=== PATIENT | male | born 1950 | race Caucasian/White ===

== ENCOUNTER 2017-06-16 13:11 | Emergency (ER) | payer MEDICARE, MEDICAID ==
--- NOTE | 2017-06-16 14:28 | RAD ---
PA AND LATERAL VIEWS CHEST: Date: 06/16/17 HISTORY: Cough, aspiration. FINDINGS: Comparison made with exam of 01/21/17. The heart size is enlarged. There is evidence of old granulomatous disease. No focal areas of consol idation, pneumothorax, or pleural effusions are seen. There are degenerative changes in the spine. IMPRESSION: No acute process. POS: [facility]
[2017-06-16 14:46] LABS: #Eosinphils 0.1 thou/uL (0.0-0.7); #Lymphocytes 1.5 thou/uL (1.20-3.40); #Monocytes 0.7 thou/uL (0.11-0.59); #Neutrophils 5.8 thou/uL (1.40-6.50); %Basophils 0.1 % (0.0-1.0); %Eosinophils 1.3 % (0.0-10.0); %Lymphocytes 18.2 % (21.0-51.0); Hematocrit 43.6 % (42.0-52.0); Mean Platelet Volume 6.3 fL (7.4-10.4); Red Blood Cell (RBC) Count 4.89 mill/uL (4.70-6.10); White Blood Cell (WBC) Count 8.1 thou/uL (4.8-10.8)
[2017-06-16 14:51] LABS: Anion Gap 12 mmol/L (10-20); BUN (Urea Nitrogen) 10 mg/dL (8.4-25.7); Calc. Creatinine Clearance 0 mL/min (70-130); Carbon Dioxide 29 mmol/L (23-31); Chloride 101 mmol/L (98-107); Estimated GFR-MDRD Greater than 90
== END 2017-06-16 15:12 | disposition home or self-care (01) ==
LOC: ERS 13:11
DX: J06.9 Acute upper respiratory infection, unspecified (principal); F84.0 Autistic disorder; E11.9 Type 2 diabetes mellitus without complications; I10 Essential (primary) hypertension; Z85.038 Personal history of other malignant neoplasm of large intestine
CPT/HCPCS: 36415; 71020; 80048; 85025

== ENCOUNTER 2017-12-12 09:15 | Outpatient (CLI) | payer MEDICARE, MEDICAID ==
[2017-12-12 11:41] LABS: Chloride 102 mmol/L (98-107); Potassium 4.3 mmol/L (3.5-5.1); Sodium 142 mmol/L (136-145)
[2017-12-12 11:42] LABS: Calcium 10.2 mg/dL (7.8-10.44); Glucose 102 mg/dL (80-115)
[2017-12-12 11:44] LABS: Carbon Dioxide 30 mmol/L (23-31)
[2017-12-12 11:46] LABS: BUN (Urea Nitrogen) 16 mg/dL (8.4-25.7); Calc. Creatinine Clearance 0 mL/min (70-130); Estimated GFR-MDRD Greater than 90
--- NOTE | 2017-12-12 11:50 | CT ---
CT OF THE THORAX WITHOUT IV CONTRAST: INDICATION: Followup pulmonary nodules. COMPARISON: Prior exams dated 12/16/16 and 12/25/15. FINDINGS: The pulmonary nodules have been stable since December 2015 and are benign. There is a new airspace opac ity within the right lower lobe with some portions of it being hyperdense radiating suspicion for pos sible aspiration pneumonitis with some barium-impregnated contrast. Chronic lung changes otherwise a re stable. No enlarged lymph nodes are evident. There is scattered degenerative change. IMPRESSION: 1. Pulmonary nodules have been stable since December of 2015 and are benign. 2. New airspace opacity with some radiodensity suspicious for aspirated barium within the posteromed ial right lower lobe. Findings are suspicious for aspiration pneumonitis. Modified barium swallow w [facility] speech therapy consultation is recommended. POS: [facility]
[2017-12-12 12:04] LABS: Anion Gap 14 mmol/L (10-20)
[2017-12-12 13:09] LABS: Bilirubin Negative (Negative); Blood, Urine Trace (Negative); Clarity CLOUDY (Clear); Glucose, Urine (Dipstick) Negative (Negative); Leukocyte Negative (Negative); Nitrite Negative (Negative); Protein, Urine (Dipstick) Negative (Neg-Trace); Specific Gravity, Urine 1.016 (1.002-1.036); Urobilinogen 0.2 mg/dL (0.2-1.0); pH, Urine 7.5 (5.0-9.0)
[2017-12-12 13:10] LABS: Bacteria/HPF None Seen HPF (None Seen); Hyaline Casts/LPF 0-3 HYALINE CAST LPF (0-3 Hyaline); Squamous Epithelial 0-3 HPF (0-3); WBC/HPF 0-3 HPF (0-3)
== END 2017-12-12 09:16 | disposition home or self-care (01) ==
LOC: CT 09:15
PROVIDERS: ATTEND Internal Medicine
DX: Z12.5 Encounter for screening for malignant neoplasm of prostate (principal); R91.8 Other nonspecific abnormal finding of lung field; N20.0 Calculus of kidney; R35.0 Frequency of micturition
CPT/HCPCS: 71250; 80048; 81001; 87086; G0103

== ENCOUNTER 2017-12-22 20:15 | Emergency (ER) | payer MEDICARE, MEDICAID ==
--- NOTE | 2017-12-22 21:26 | RAD ---
AP VIEW OF THE CHEST: 12/22/17 INDICATION: Cough. IMPRESSION: No acute cardiopulmonary abnormality. The examination is not appreciably changed from comparison date d 01/21/17. POS: [facility]
[2017-12-22] MEDS ORDERED: Acetaminophen 500 MG TAB ONE (21:32)
== END 2017-12-22 22:18 | disposition home or self-care (01) ==
LOC: ERS 20:15
DX: J18.9 Pneumonia, unspecified organism (principal); I10 Essential (primary) hypertension; E11.9 Type 2 diabetes mellitus without complications; F84.0 Autistic disorder; Z79.82 Long term (current) use of aspirin; Z87.442 Personal history of urinary calculi; Z79.899 Other long term (current) drug therapy
CPT/HCPCS: 71045; 94640; J7620

== ENCOUNTER 2018-03-26 08:42 | Emergency (ER) | payer MEDICARE, MEDICAID ==
--- NOTE | 2018-03-26 09:38 | RAD ---
ACUTE ABDOMINAL SERIES: INDICATION: Cough. Concern that patient may have eaten a sock. History of PICA. FINDINGS: Visualized aspects of the lungs are within normal limits. No pneumoperitoneum is evident. There is a moderate amount of retained stool within the rectum and right hemicolon. There is a 9 mm stone inv olving the right kidney. No radiopaque foreign body is evident. No acute osseous abnormality is rasheed dent. IMPRESSION: 1. No acute abnormality. 2. Right nephrolithiasis. 3. A moderate amount of retained stool within the right hemicolon and rectum. POS: [facility]
== END 2018-03-26 09:57 | disposition home or self-care (01) ==
LOC: ERS 08:42
DX: K59.00 Constipation, unspecified (principal); E11.9 Type 2 diabetes mellitus without complications; I10 Essential (primary) hypertension; F84.0 Autistic disorder
CPT/HCPCS: 74022

== ENCOUNTER 2018-04-03 09:47 | Outpatient (CLI) | payer MEDICARE, MEDICAID ==
[2018-04-03 10:54] LABS: Bilirubin Negative (Negative); Blood, Urine Small (Negative); Clarity CLEAR (Clear); Glucose, Urine (Dipstick) Negative (Negative); Leukocyte Negative (Negative); Nitrite Negative (Negative); Protein, Urine (Dipstick) Negative (Neg-Trace); Specific Gravity, Urine 1.012 (1.002-1.036); Urobilinogen 0.2 mg/dL (0.2-1.0); pH, Urine 6.5 (5.0-9.0)
[2018-04-03 10:56] LABS: Bacteria/HPF None Seen HPF (None Seen); Hyaline Casts/LPF 0-3 HYALINE CAST LPF (0-3 Hyaline); Squamous Epithelial None Seen HPF (0-3); WBC/HPF None Seen HPF (0-3)
[2018-04-03 11:10] LABS: Anion Gap 13 mmol/L (10-20); BUN (Urea Nitrogen) 14 mg/dL (8.4-25.7); Calc. Creatinine Clearance 0 mL/min (70-130); Calcium 10.1 mg/dL (7.8-10.44); Carbon Dioxide 26 mmol/L (23-31); Chloride 103 mmol/L (98-107); Estimated GFR-MDRD Greater than 90; Glucose 143 mg/dL (80-115); Potassium 4.4 mmol/L (3.5-5.1); Sodium 138 mmol/L (136-145)
--- NOTE | 2018-04-03 11:56 | RAD ---
ABDOMEN ONE VIEW: History: Calculus of kidney. Comparison: 03-26-18 FINDINGS: There is an unchanged calcification projecting over the right renal shadow. No left renal shadow calc ifications are appreciated. No ureteral calcifications are appreciated. IMPRESSION: Unchanged appearance of the 9 mm calculus projecting over the right renal shadow. POS: [facility]
== END 2018-04-03 09:48 | disposition home or self-care (01) ==
LOC: RAD 09:47
PROVIDERS: ATTEND Urology
DX: Z12.5 Encounter for screening for malignant neoplasm of prostate (principal); N20.0 Calculus of kidney; R35.0 Frequency of micturition
CPT/HCPCS: 74018; 80048; 81001; 87086; G0103; 36415

== ENCOUNTER 2018-04-05 09:54 | Emergency (ER) | payer MEDICARE, MEDICAID | END 2018-04-05 10:56 | disposition home or self-care (01) | LOC: ERS 09:54 | DX: S40.021A Contusion of right upper arm, initial encounter (principal); S70.11XA Contusion of right thigh, initial encounter; F84.0 Autistic disorder; E11.9 Type 2 diabetes mellitus without complications; I10 Essential (primary) hypertension; W19.XXXA Unspecified fall, initial encounter | CPT/HCPCS: 99283 ==

== ENCOUNTER 2018-06-11 11:00 | Inpatient (IN) | payer MEDICARE, MEDICAID ==
[2018-06-11] MEDS ORDERED: Ondansetron ODT 4 MG TAB ONE (11:23)
--- NOTE | 2018-06-11 12:57 | RAD ---
ABDOMEN 2 VIEWS: HISTORY: Abdominal pain. COMPARISON: None. FINDINGS: No dilated air-filled loops of large or small bowel. Moderate stool within the rectal vault. No free air. Projecting over the right renal shadow is a large calculus. IMPRESSION: 1. Findings concerning for a right renal calculi. 2. Moderate stool burden. 3. No evidence for small bowel obstruction. POS: [facility]
[2018-06-11 13:19] LABS: Bilirubin Negative (Negative); Blood, Urine Small (Negative); Clarity CLEAR (Clear); Glucose, Urine (Dipstick) 250 mg/dL (Negative); Leukocyte Negative (Negative); Nitrite Negative (Negative); Protein, Urine (Dipstick) 100 mg/dL (Neg-Trace); Specific Gravity, Urine 1.016 (1.002-1.036); Urobilinogen 0.2 mg/dL (0.2-1.0); pH, Urine 7.5 (5.0-9.0)
[2018-06-11 13:22] LABS: Bacteria/HPF None Seen HPF (None Seen); Hyaline Casts/LPF 0-3 HYALINE CAST LPF (0-3 Hyaline); RBC/HPF 21-50 HPF (0-3); Squamous Epithelial 0-3 HPF (0-3); WBC/HPF None Seen HPF (0-3)
[2018-06-11] MEDS ORDERED: ISOVUE-370 76%-LOCM 1 ML ONE (13:39)
[2018-06-11 14:19] LABS: ALT (SGPT) 21 U/L (8-55); AST (SGOT) 24 U/L (5-34); Albumin 4.4 g/dL (3.4-4.8); Alkaline Phosphatase 99 U/L (40-150); Anion Gap 15 mmol/L (10-20); BUN (Urea Nitrogen) 12 mg/dL (8.4-25.7); Bilirubin, Total 0.5 mg/dL (0.2-1.2); Calc. Creatinine Clearance 0 mL/min (70-130); Calcium 10.2 mg/dL (7.8-10.44); Carbon Dioxide 25 mmol/L (23-31); Chloride 96 mmol/L (98-107); Estimated GFR-MDRD Greater than 90; Globulin 4.1 g/dL (2.4-3.5); Glucose 214 mg/dL (80-115); Lipase 17 U/L (8-78); Potassium 4.2 mmol/L (3.5-5.1); Protein, Total 8.5 g/dL (5.8-8.1); Sodium 132 mmol/L (136-145)
[2018-06-11] MEDS ORDERED: Ketorolac Tromethamine 30 MG/ML VIAL ONE (14:42)
[2018-06-11] MEDS ORDERED: Morphine 2 MG/ML SYRINGE ONE (14:42)
[2018-06-11 14:59] LABS: #Lymphocytes 0.5 thou/uL (1.20-3.40); #Monocytes 0.2 thou/uL (0.11-0.59); #Neutrophils 8.3 thou/uL (1.40-6.50); %Basophils 0.1 % (0.0-1.0); %Eosinophils 0.4 % (0.0-10.0); %Lymphocytes 5.3 % (21.0-51.0); %Monocytes 2.5 % (0.0-10.0); %Neutrophils 91.8 % (42.0-75.0); Hemoglobin 15.4 g/dL (14.0-18.0); Mean Corpuscular HGB CONC 43.4 g/dL (32.0-36.0); Mean Corpuscular Hemoglobin 37.3 pg (27.0-31.0); Mean Corpuscular Volume 85.9 fL (78.0-98.0); Mean Platelet Volume 6.5 fL (7.4-10.4); PLT Morphology Comment Appears Adequate; Platelet Count 254 thou/uL (130-400); RBC Distribution Width 12.9 % (11.5-14.5); RBC Morphology Normal; Red Blood Cell (RBC) Count 4.12 mill/uL (4.70-6.10)
--- NOTE | 2018-06-11 15:18 | CT ---
CT ABDOMEN AND PELVIS WITH IV AND ORAL CONTRAST: HISTORY: Abdominal pain. Vomiting. COMPARISON: . FINDINGS: Tiny bilateral lung base nodules and right posterior pleural calcification are again demonstrated. F luid is present within the stomach without significant dilatation. An oval 0.9 cm nonobstructing rig ht renal calculus is stable. Degenerative changes lumbar spine. Fecal distention of the rectum. In tramuscular lipoma of the right gluteal region is unchanged in appearance. IMPRESSION: 1. No evidence of bowel obstruction. 2. Nonobstructing right renal calculus, stable. 3. Other chronic-type findings are stable. POS: [facility]
[2018-06-11] MEDS ORDERED: Milk Of Magnesia 30 ML UDCUP ONE (18:13)
[2018-06-11] MEDS ORDERED: Sodium Chloride 0.9% 1,000 ML IV SCH (21:31)
[2018-06-11] MEDS ORDERED: Ondansetron ODT 4 MG TAB SL PRN (21:31)
[2018-06-11] MEDS ORDERED: Acetaminophen 325 MG TAB PO PRN (21:31)
[2018-06-11] MEDS ORDERED: Ondansetron HCl/PF 4 MG/2 ML Vial IVP PRN (21:31)
[2018-06-11 21:42] VITALS: BMI 26.6
[2018-06-11] MEDS ORDERED: hydrALAZINE 20 MG/ML VIAL SLOW IVP PRN (22:28)
[2018-06-11] MEDS ORDERED: Morphine 4 MG/ML VIAL IV PRN (22:30)
[2018-06-11] MEDS: Sodium Chloride 0.9% 1,000 ML IV SCH (22:41)
[2018-06-12] MEDS ORDERED: HumaLOG 300 UNITS/3 ML VIAL SC PRN (03:15)
[2018-06-12] MEDS ORDERED: Dextrose 50% Abboject 50 ML SYRINGE SLOW IVP PRN (03:15)
[2018-06-12] MEDS ORDERED: Dextrose 5% in Water 1,000 ML IV PRN (03:15)
--- NOTE | 2018-06-12 07:51 | HP ---
CHIEF COMPLAINT: Nausea, vomiting, diarrhea. HISTORY OF PRESENT ILLNESS: This is a 68-year-old male with past medical history of autism, nonverba l; diabetes mellitus, type 2; hypertension; colon cancer, status post surgery; presented with project ile vomitus. Per patient's district wire chief, the patient was supposed to be eating breakfast this morning a nd the patient had an episode of projectile vomitus and this prompted the ED visit. In the ED, the p atient was evaluated and a CT of the abdomen and pelvis was performed which showed that there is a fe gregorio distention of the rectum; therefore, the patient was started on Milk of Magnesia and other stool softeners to try and get the patient to have a bowel movement. An attempt to do manual fecal disimpa ction was tried, but however, was unsuccessful. The patient has not been admitted, to be evaluated b y GI, so that GI can trying disimpact the patient. REVIEW OF SYSTEMS: Cannot be obtained since patient is nonverbal and patient has history of autism. PAST MEDICAL HISTORY: The patient has a past medical history of diabetes mellitus, type 2; autism; h ypertension; colon cancer, status post resection; history of aspiration pneumonia. FAMILY HISTORY: Cannot be obtained. PAST SURGICAL HISTORY: Colon resection from colon cancer, bilateral eye surgery, cataract removal, h istory of hernia repair, colectomy. PSYCHIATRIC HISTORY: Autism, patient is nonverbal. SOCIAL HISTORY: The patient does not drink, does not smoke, does not do any illicit drugs. The anjana ent lives at home with district wire chief. FAMILY HISTORY: Noncontributory. ALLERGIES: The patient is allergic to PENICILLIN. CURRENT MEDICATIONS: Multivitamins, ferrous sulfate, vitamin D3, aspirin, naproxen, Bactrim DS, DuoN ebs, Dulcolax, losartan 25 mg, omeprazole. PHYSICAL EXAMINATION: VITAL SIGNS: Blood pressure is 189/140, pulse of 86, respiratory rate of 18, temperature of 98.8, ox ygen saturation of 98. GENERAL: The patient is lying in bed comfortably, playing with his toys. HEENT: Normocephalic, atraumatic. Pupils are equally round and reactive to light. Extraocular move ments are intact. There are no signs of scleral icterus. Mucous membranes are moist. NECK: Trachea is midline. No JVD. Supple. CARDIOVASCULAR: Positive S1, S2, regular rate and rhythm. No murmurs, no gallops, no rubs are appre ciated. ABDOMEN: Soft, nontender, nondistended. No palpable masses noted. The patient do have a slight her jolly that can be palpated. EXTREMITIES: Upper extremity, 5/5 upper extremity strength, good radial pulses bilaterally. Lower e xtremity, the patient has 5/5 lower extremity strength, good pedal pulses bilaterally. NEUROLOGIC: Cranial nerves II-XII grossly intact. No focal motor neurologic deficits noted. IMAGING: Abdomen KUB showed distended stomach and left hemicolon. There is fecal impaction. ED COURSE: The patient was given Milk of Magnesia, Zofran, Toradol injection and morphine injection. LABORATORY DATA: WBC 9.0, hemoglobin 15.4, hematocrit 35.4, platelet of 254. Sodium 132, potassium 4.2, chloride 96, carbon dioxide 25, BUN is 12, creatinine is 0.69, glucose of 214, lipase of 17. Ur inalysis: Nitrate is negative, leukoesterase is negative. ASSESSMENT AND PLAN: 1. This is a 68-year-old male being admitted for fecal impaction, now we have consulted GI. We will admit the patient n.p.o. We will follow up with GI's recommendation. At this point, we have given the patient stool softeners and a manual fecal impaction was tried, but was unsuccessful. 2. Diabetes mellitus. We will do sliding scale. We will continue the patient on home medication. 3. Hypertension. We will continue the patient on home medication. 4. Deep venous thrombosis and gastrointestinal prophylaxis. This case has been dictated by Dr. Hany Salguero on patient Jeff Lares.
[2018-06-12] MEDS ORDERED: Prevnar 13-Val Conj/PF 0.5 ML SYRINGE IM ONE (09:00)
[2018-06-12] MEDS ORDERED: PROVENTIL INHALER 6.7 G (200 INHALATIONS) INH PRN (09:50)
--- NOTE | 2018-06-12 09:55 | PDOC.PN ---
- Subjective Encounter Start Date: 06/12/18 Encounter Start Time: 09:53 Subjective: autistic, non verbal, no distress - Objective MAR Reviewed: Yes Vital Signs & Weight: Vital Signs (12 hours) Temp Pulse Resp BP Pulse Ox 06/12/18 07:20 97.6 F 85 20 126/81 98 06/12/18 05:53 97.0 F L 06/12/18 03:00 97.4 F L 88 16 138/82 98 06/11/18 22:50 97.8 F 78 16 166/90 H 96 Weight Weight 146 lb I&O: 06/11/18 06/12/18 06/13/18 06:59 06:59 06:59 Intake Total 120 Output Total 225 Balance -105 Result Diagrams: 06/11/18 13:50 06/11/18 13:50 Additional Labs: Accuchecks 06/12/18 05:02 POC Glucose 119 H Phys Exam - Physical Examination Constitutional: NAD Neck: no JVD Respiratory: clear to auscultation bilateral Cardiovascular: RRR, no significant murmur Gastrointestinal: soft, no distention, positive bowel sounds Musculoskeletal: no edema Dx/Plan (1) Fecal impaction in rectum Code(s): K56.41 - FECAL IMPACTION Status: Acute (2) Autism Status: Chronic (3) Diabetes type 2, controlled Code(s): E11.9 - TYPE 2 DIABETES MELLITUS WITHOUT COMPLICATIONS Status: Chronic Qualifiers: Diabetes mellitus custodial insulin use: without long term care pharmacist use Diabetes mellitus complication status: without complication Qualified Code(s): E11.9 - Type 2 diabetes mellitus without complications (4) GERD (gastroesophageal reflux disease) Code(s): K21.9 - GASTRO-ESOPHAGEAL REFLUX DISEASE WITHOUT ESOPHAGITIS Status: Chronic Qualifiers: Qualified Code(s): K21.9 - Gastro-esophageal reflux disease without esophagitis (5) Hypertension Code(s): I10 - ESSENTIAL (PRIMARY) HYPERTENSION Status: Chronic Qualifiers: Hypertension type: essential hypertension Qualified Code(s): I10 - Essential (primary) hypertension - Plan lacctulose for impation/ -: selected home meds * .
[2018-06-12] MEDS: Cholecalciferol (Vitamin D3) 400 UNITS TAB PO SCH (10:46)
[2018-06-12] MEDS: Sodium Chloride 0.9% 1,000 ML IV SCH (12:51)
[2018-06-12] MEDS ORDERED: GoLYTELY 4,000 ml Bottle PO SCH (14:00)
[2018-06-12] MEDS: Simvastatin 5 MG TAB PO SCH (18:01)
[2018-06-12] MEDS: Aspirin 81 mg Enteric Coated Tablet PO SCH (18:01)
--- NOTE | 2018-06-13 00:23 | CON ---
DATE OF CONSULTATION: 06/12/2018 REASON FOR CONSULTATION: Possible fecal impaction and recent episodes of nausea and vomiting. HISTORY OF PRESENT ILLNESS: Mr. Lares is a 68-year-old with a history of developmental delay, who has a blood and plasma laboratory assistant, who I know very well from previous bouts of caring for him. He is 68 years old now, an d has autism, who is nonverbal with diabetes, hypertension. He had a previous history of colon cance r in 2010 with 3 synchronous tumors, stage 3. He had surgery, but did not have any adjunctive radiat ion or chemotherapy secondary to his developmental delay and inability to tolerating that. We did tr y it at first, but had to be discontinued. In any event, he presented apparently yesterday with proj ectile vomiting at home. His blood and plasma laboratory assistant noted that he had eaten breakfast in the morning and had had that episode, but he really had not had any bowel movements about 2-3 days and did have something lik e he did not feel well for 2-3 days. He had not been eating and had not seemed to have been himself. In any event, he had plain film that showed a large amount of stool in the rectal vault. A CAT sca n showed fecal distention of the rectum. Apparently, the ER attempted a manual disimpaction, but thi s was unsuccessful, and they admitted him to be evaluated by GI so that GI could disimpact the patien t. In talking with the nurses, he had a couple of bowel movements now. He has had milk of magnesia and some lactulose. He clinically does not feel he is in pain. He had no hematemesis. He has had n o vomiting or melena. REVIEW OF SYSTEMS: Cannot be obtained from the patient since he is nonverbal, but the blood and plasma laboratory assistant, who is with him states he has had no fever or chills. He has not been in the hospital recently for any anything. He continues to follow up with his primary physician. PAST MEDICAL HISTORY: Diabetes, type 2; autism/developmental delay; hypertension; colon cancer, prev ious resection; history aspiration pneumonia. PAST SURGICAL HISTORY: Colon cancer resection with anastomosis in the transverse colon; bilateral ey e surgery for cataracts; history of hernia repair; and colonoscopy, last in 2014, at which time he still d few small polyps and it was recommended he have a repeat colonoscopy this year. SOCIAL HISTORY: The patient lives in a detention setting, with good care. Does not smoke or drink. There is no drug use. FAMILY HISTORY: Noncontributory. ALLERGIES: PENICILLIN. MEDICATIONS: At home, iron, multivitamin, vitamin D3, aspirin, Naprosyn, Bactrim, DuoNeb, Dulcolax, losartan, omeprazole. PRESENT MEDICATIONS HERE IN THE HOSPITAL: Proventil, Ecotrin, vitamin D, hydralazine, Humalog, lactu lose, Protonix, Zocor, normal saline. PHYSICAL EXAMINATION: GENERAL: Patient is resting comfortably in bed. His blood and plasma laboratory assistant is at the bedside. He is in no distr ess. He is resting comfortably. He is actually sleeping. VITAL SIGNS: Temperature is 97.4, pulse 85-90, blood pressure 108/101-126/81. HEENT: In general, oropharynx without lesions. NECK: Supple, without any adenopathy. There is no jugular venous distention. LUNGS: Clear. HEART: Regular rate and rhythm without clicks, rubs, or murmurs. ABDOMEN: Soft, nontender. There is a scar in the midline. Abdomen is consistent with a prior herni a repair. There is no evidence of incarcerated hernias or nonreducible hernias. Abdomen is notable for positive bowel sounds. There is no palpable hepatosplenomegaly. EXTREMITIES: Reveal no clubbing, cyanosis, or edema. NEUROLOGIC: His mental status is similar to what it typically is. RECTAL EXAMINATION: Reveals there was some liquid stool in the vault. No masses or obstruction palp ated. No stool palpated. LABORATORY STUDIES: Sodium 132, potassium 4.2, chloride 176, bicarbonate 25, BUN 12, creatinine 0.69 , sugars 119, calcium is 10.2, protein is 8.5, albumin is 4.4, AST and ALT of 24 and 21, alkaline brian sphatase 99, bilirubin is 0.5. Last CEA in 2014 was 5. White count is 9, hemoglobin 15, platelet co unt 254. Urine on 03/14/2018 showed red blood cells 21-50. IMAGING STUDIES: The patient had a plain film of the abdomen and pelvis on 06/11/2018, showed a righ t renal calculus, moderate stool burden. No small-bowel obstruction. I reviewed these films. CAT s can performed the same day. I reviewed those films. It shows no small-bowel obstruction. There is a little bit less stool in the rectal vault, but there is still quite a bit of distension there and t here was a nonobstructing right renal calculus. The patient was admitted with some projectile vomiting, nausea, and constipation for a couple days. ASSESSMENT: This is a 68-year-old gentleman, who was admitted with projectile vomiting and was felt to have a fecal impaction on initial imaging. The rectal exam from the ER is really unclear of what they thought was going on, but they felt they could not disimpact and he needed to be admitted for th at. He has had some laxatives and presently he has no fecal impaction. On exam, he has positive bow el sounds and a soft abdomen. He did try some clear liquids today and had a bit of emesis. I suspec t this is all related to impaction. However, he has been noted to have fluctuating blood pressures, hematuria, and stone in the right kidney. It is possible maybe he had severe pain from a kidney ston e that caused him to have vomiting at home and I think if he has recurrent vomiting that needs to be considered, it seems he has seen Urology for this in the past. 1. Fecal impaction, seems to be resolved. 2. History of colon cancer, stage 3 without adjunctive therapy. He is due for a colonoscopy, and wi th the findings on this admission, we are going to get that done on this admission, as he is having t hat tomorrow, as he has only cognition understanding of what is going on. It is probably best to go ahead and get that done as an inpatient and try this as outpatient later since he is here already. I have talked to his blood and plasma laboratory assistant, and we will proceed with that plan tomorrow. 3. We will also check a CEA.
[2018-06-13] MEDS: Sodium Chloride 0.9% 1,000 ML IV SCH ×3 (03:14→20:51)
--- NOTE | 2018-06-13 08:35 | PDOC.PN ---
- Subjective Encounter Start Date: 06/13/18 Encounter Start Time: 08:34 Subjective: alert, calm - Objective MAR Reviewed: Yes Vital Signs & Weight: Vital Signs (12 hours) Temp Pulse Resp BP Pulse Ox 06/13/18 08:00 97.0 F L 90 16 167/95 H 96 06/13/18 04:00 97.8 F 76 18 138/89 95 06/13/18 00:00 97.8 F 92 18 150/83 H 95 Weight Weight 146 lb I&O: 06/12/18 06/13/18 06/14/18 06:59 06:59 06:59 Intake Total 120 1280 Output Total 225 Balance -105 1280 Result Diagrams: 06/11/18 13:50 06/11/18 13:50 Additional Labs: Accuchecks 06/13/18 06/12/18 06/12/18 04:32 19:47 17:07 POC Glucose 100 169 H 134 H 06/12/18 11:20 POC Glucose 142 H Phys Exam - Physical Examination Neck: no JVD Respiratory: clear to auscultation bilateral Cardiovascular: RRR, no significant murmur Gastrointestinal: soft, positive bowel sounds Musculoskeletal: no edema Dx/Plan (1) Fecal impaction in rectum Code(s): K56.41 - FECAL IMPACTION Status: Acute (2) Autism Status: Chronic (3) Diabetes type 2, controlled Code(s): E11.9 - TYPE 2 DIABETES MELLITUS WITHOUT COMPLICATIONS Status: Chronic Qualifiers: Diabetes mellitus intermediate frame tender insulin use: without intermediate frame tender use Diabetes mellitus complication status: without complication Qualified Code(s): E11.9 - Type 2 diabetes mellitus without complications (4) GERD (gastroesophageal reflux disease) Code(s): K21.9 - GASTRO-ESOPHAGEAL REFLUX DISEASE WITHOUT ESOPHAGITIS Status: Chronic Qualifiers: Qualified Code(s): K21.9 - Gastro-esophageal reflux disease without esophagitis (5) Hypertension Code(s): I10 - ESSENTIAL (PRIMARY) HYPERTENSION Status: Chronic Qualifiers: Hypertension type: essential hypertension Qualified Code(s): I10 - Essential (primary) hypertension - Plan colonoscopy planned today, FU post * .
[2018-06-13] MEDS ORDERED: OLOPATADINE HCL EA EYE SCH (09:00)
[2018-06-13] MEDS: Cholecalciferol (Vitamin D3) 400 UNITS TAB PO SCH (10:17)
[2018-06-13] MEDS ORDERED: Sodium Chloride 0.9% 500 ML IV SCH (12:15)
--- NOTE | 2018-06-13 12:39 | PRG ---
DATE OF SERVICE: 06/13/2018. SUBJECTIVE: Mr. Larse was not able to drink a prep yesterday, today is only drinking about a third of it. He had a couple of good bowel movements though. OBJECTIVE: VITALS: Temperature 97, pulse 90, blood pressure 167/95. ABDOMEN: Soft, nontender. SKIN: Poor skin turgor, and he seems a little bit dehydrated. LABORATORY DATA: glucose 100. CEA was 4.7. ASSESSMENT: 1. History of colorectal cancer, due for followup colonoscopy has been 5 years since his last exam. 2. Admission with fecal impaction, projectile vomiting, improved. RECOMMENDATIONS: Clear liquids today. Colonoscopy tomorrow.
[2018-06-13] MEDS: Aspirin 81 mg Enteric Coated Tablet PO SCH (16:25)
[2018-06-13] MEDS: Simvastatin 5 MG TAB PO SCH (16:25)
[2018-06-14] MEDS: Sodium Chloride 0.9% 1,000 ML IV SCH ×2 (06:00→22:30)
[2018-06-14] MEDS: Cholecalciferol (Vitamin D3) 400 UNITS TAB PO SCH (07:49)
[2018-06-14] MEDS ORDERED: hydrALAZINE 20 MG/ML VIAL SLOW IVP PRN (08:19)
[2018-06-14] MEDS ORDERED: Labetalol HCl 100 MG/20 ML VIAL SLOW IVP PRN (08:19)
--- NOTE | 2018-06-14 08:24 | PDOC.PN ---
- Subjective Encounter Start Date: 06/14/18 Encounter Start Time: 08:22 Subjective: no distress - Objective MAR Reviewed: Yes Vital Signs & Weight: Vital Signs (12 hours) Temp Pulse Resp BP Pulse Ox 06/14/18 07:51 96.2 F L 88 18 169/108 H 97 06/14/18 04:00 97.8 F 89 18 157/89 H 97 06/14/18 00:00 98.1 F 86 16 162/71 H 95 Weight Weight 146 lb I&O: 06/13/18 06/14/18 06/15/18 06:59 06:59 06:59 Intake Total 1280 1350 Balance 1280 1350 Result Diagrams: 06/11/18 13:50 06/11/18 13:50 Additional Labs: Accuchecks 06/13/18 06/13/18 06/13/18 19:39 16:51 11:54 POC Glucose 90 90 89 Phys Exam - Physical Examination Neck: no JVD Respiratory: clear to auscultation bilateral Cardiovascular: RRR, no significant murmur Gastrointestinal: soft, positive bowel sounds Musculoskeletal: no edema Dx/Plan (1) Fecal impaction in rectum Code(s): K56.41 - FECAL IMPACTION Status: Acute (2) Autism Status: Chronic (3) Diabetes type 2, controlled Code(s): E11.9 - TYPE 2 DIABETES MELLITUS WITHOUT COMPLICATIONS Status: Chronic Qualifiers: Diabetes mellitus medical terminologist insulin use: without senior care use Diabetes mellitus complication status: without complication Qualified Code(s): E11.9 - Type 2 diabetes mellitus without complications (4) GERD (gastroesophageal reflux disease) Code(s): K21.9 - GASTRO-ESOPHAGEAL REFLUX DISEASE WITHOUT ESOPHAGITIS Status: Chronic Qualifiers: Qualified Code(s): K21.9 - Gastro-esophageal reflux disease without esophagitis (5) Hypertension Code(s): I10 - ESSENTIAL (PRIMARY) HYPERTENSION Status: Chronic Qualifiers: Hypertension type: essential hypertension Qualified Code(s): I10 - Essential (primary) hypertension - Plan colonosopy today -: contprn BP control * .
--- NOTE | 2018-06-14 12:57 | OP ---
DATE OF PROCEDURE: 06/14/2018 PROCEDURE: Colonoscopy with snare polypectomy. SURGEON: Dr. Nicanor Jeter PREOPERATIVE DIAGNOSIS: History of colon cancer. His last colonoscopy was in 2014. PROCEDURE IN DETAIL: Informed consent was obtained from the patient. He was sedated with total intr avenous anesthesia. The rectal exam was performed and was normal. The preparation quality was fair to good. There was no solid stool remaining in the colon. The colon was irrigated with the colonosc ope. The colonoscope was advanced to the terminal ileum. The mucosa of the terminal ileum was nadir l. There was an anastomosis in the distal transverse colon. There appears to have been on an extend ed right hemicolectomy. There were 5 polyps measuring 4 mm to 6 mm, removed from the descending colo n near the splenic flexure. One of these was removed with snare cautery polypectomy, the others were cold snare polypectomy. There was a 3 mm sigmoid polyp removed by cold snare polypectomy. The ryanne norma of the colonic mucosa including retroflexed views was normal. The images were somewhat washed out by the light with a suboptimal definition. IMPRESSION: 1. Five polyps measuring 4-6 mm were removed by hot and cold snare from the descending colon. 2. There was one 3 mm polyp removed from the sigmoid colon by cold snare. 3. Prior extended right hemicolectomy. 4. Otherwise normal colonoscopy to the terminal ileum. Retroflex views in the rectum were unremarka ble. RECOMMENDATIONS: 1. Await histopathology. 2. Repeat colonoscopy in 3 years for polyp surveillance. 3. Start MiraLax 17 grams daily. 4. Gastroenterology will sign off. Please call if we can be of assistance.
[2018-06-14] MEDS: Simvastatin 5 MG TAB PO SCH (16:52)
[2018-06-14] MEDS: Aspirin 81 mg Enteric Coated Tablet PO SCH (16:52)
[2018-06-14] MEDS ORDERED: PROPOFOL 200 MG/20 ML VIAL ONE (17:25)
[2018-06-14] MEDS ORDERED: Lidocaine 1% PF 5 ML VIAL ONE (17:25)
[2018-06-14] MEDS ORDERED: Ondansetron HCl/PF 4 MG/2 ML Vial IVP PRN (22:06)
[2018-06-15 08:50] VITALS: BP 167/82; TEMP 98.1
[2018-06-15] MEDS ORDERED: Polyethylene Glycol 3350 17 GM Packet PO SCH (09:00)
[2018-06-15] MEDS: Cholecalciferol (Vitamin D3) 400 UNITS TAB PO SCH (09:51)
--- NOTE | 2018-06-15 10:23 | DIS ---
TRANSFER OF CARE NOTE DATE OF ADMISSION: 06/11/2018 DATE OF DISCHARGE: 06/15/2018 DISCHARGE DISPOSITION: Home. PRIMARY CARE PROVIDER: Dr. Lavern Jin HOSPITAL COURSE: The patient admitted with a significant fecal impaction, had a history of colon can cer with history of diabetes mellitus type 2, autism, hypertension. Two view abdomen revealed no rasheed dence of bowel obstruction. Abdominal pelvis CT revealed no evidence of bowel obstruction, nonobstru cting right renal calculus and significant stool. He was seen in consultation by Dr. Gilbert Daugherty. On 06/14/2018 he underwent a colonoscopy. Six polyps were removed, pathology is pending. Rec ommendation of MiraLax 17 grams in water daily was made. PERTINENT LABORATORY DATA: CBC was really unremarkable. His blood sugars were well controlled. CEA was 4.74 which is within the normal range. Comp metabolic profile showed a sodium of 132, potassium 4.2. Normal renal function, normal liver function tests. The patient is autistic and nonverbal. His vital signs are stable. His abdomen is benign. The situ ation has been discussed with his slicing machine feeder. He is being discharged home. He will need follow up wi th his PCP in 1 week. As mentioned before, MiraLax 17 grams in water daily has been added to prevent recurrence of his fecal impaction. He will need follow up with GI about his polyps pathology.
== END 2018-06-15 13:15 | disposition home or self-care (01) | DRG 389 ==
LOC: ERS 11:00 → 2SW 21:10 → OBSVTOIN 06-12 11:53 → T4-B 06-12 17:30
PROVIDERS: ADMIT Internal Medicine; ATTEND Internal Medicine
PROC: 0DBM8ZZ Excision of Descending Colon, Via Natural or Artificial Opening Endoscopic (ICD-10-PCS; principal; 2018-06-14)
PROC: 0DBN8ZZ Excision of Sigmoid Colon, Via Natural or Artificial Opening Endoscopic (ICD-10-PCS; 2018-06-14)
DX: K56.41 Fecal impaction (principal); F84.0 Autistic disorder; F79 Unspecified intellectual disabilities; E11.9 Type 2 diabetes mellitus without complications; Z79.84 Long term (current) use of oral hypoglycemic drugs; I10 Essential (primary) hypertension; Z85.038 Personal history of other malignant neoplasm of large intestine; Z88.0 Allergy status to penicillin; K21.9 Gastro-esophageal reflux disease without esophagitis
CPT/HCPCS: 36415; 36416; 74019; 74177; 80053; 81003; 81015; 82378; 83690; 85025; 88305; 90471; 90670; 96374; 96375; G0009; J0360; J1885; J2001; J2270; J2405; J2704; Q0162

== ENCOUNTER 2018-07-08 16:46 | Emergency (ER) | payer MEDICARE, MEDICAID ==
--- NOTE | 2018-07-08 18:16 | RAD ---
HISTORY: Cough. TWO VIEWS SOFT TISSUE NECK: 07/08/18 The patient has difficulty swallowing. AP and lateral views soft tissue neck obtained. Images demonstrate extensive anterior bridging osteophytes in the cervical spine. Anterior to the C3, C4, C5 and C6 levels. The anterior bridging osteophytes results in bony posterior compression of the hypopharynx and proximal esophagus. There is some loss of the normal lordotic curvature of the cervi gregorio spine. No evidence of prevertebral soft tissue swelling is seen. The epiglottis is unremarkable. IMPRESSION: 1. Extensive anterior osseous bony fusion of the mid cervical spine. 2. No definite evidence of prevertebral soft tissue swelling seen. POS: [facility]
--- NOTE | 2018-07-08 18:19 | RAD ---
TWO VIEWS CHEST: 07/08/18 HISTORY: Cough. PA and lateral views of the chest is obtained on 07/08/18. Comparison made to previous exam from 07/13/17. Two views chest demonstrate mild pulmonary vascular congestion. The lungs are well aerated. No eviden ce of acute intrathoracic abnormality is seen. No evidence of effusions, pneumonia or pneumothorax seen. IMPRESSION: Mild pulmonary vascular congestion, otherwise unremarkable two views chest. POS: [facility]
== END 2018-07-08 18:43 | disposition home or self-care (01) ==
LOC: ERS 16:46
DX: B34.9 Viral infection, unspecified (principal); F84.0 Autistic disorder; E11.9 Type 2 diabetes mellitus without complications; I10 Essential (primary) hypertension; Z79.899 Other long term (current) drug therapy
CPT/HCPCS: 70360; 71046

== ENCOUNTER 2018-07-11 02:05 | Inpatient (IN) | payer MEDICARE, MEDICAID ==
[2018-07-11] MEDS ORDERED: Acetaminophen 325 MG Suppository ONE (02:40)
[2018-07-11 03:00] LABS: Hemoglobin 12.7 g/dL (14.0-18.0); Mean Corpuscular HGB CONC 36.4 g/dL (32.0-36.0); Mean Corpuscular Hemoglobin 31.9 pg (27.0-31.0); Mean Corpuscular Volume 87.5 fL (78.0-98.0); Mean Platelet Volume 6.1 fL (7.4-10.4); Platelet Count 388 thou/uL (130-400); RBC Distribution Width 13.1 % (11.5-14.5); Red Blood Cell (RBC) Count 3.99 mill/uL (4.70-6.10); White Blood Cell (WBC) Count 15.8 thou/uL (4.8-10.8)
[2018-07-11] MEDS ORDERED: Ondansetron PF 4 MG/2 ML Vial ONE (03:00)
[2018-07-11 03:02] LABS: Bilirubin Negative (Negative); Blood, Urine Large (Negative); Clarity CLEAR (Clear); Glucose, Urine (Dipstick) 100 mg/dL (Negative); Leukocyte Negative (Negative); Nitrite Negative (Negative); Protein, Urine (Dipstick) 100 mg/dL (Neg-Trace); Specific Gravity, Urine 1.027 (1.002-1.036)
[2018-07-11 03:07] LABS: Bacteria/HPF None Seen HPF (None Seen); Hyaline Casts/LPF 4-6 HYALINE CAST LPF (0-3 Hyaline); Pathc Cast-AUWi Flag 0.14 (0-2.49); RBC/HPF 21-50 HPF (0-3); Squamous Epithelial 0-3 HPF (0-3); WBC/HPF 0-3 HPF (0-3)
[2018-07-11 03:11] LABS: ALT (SGPT) 16 U/L (8-55); AST (SGOT) 17 U/L (5-34); Albumin 3.3 g/dL (3.4-4.8); Alkaline Phosphatase 74 U/L (40-150); Anion Gap 13 mmol/L (10-20); BUN (Urea Nitrogen) 9 mg/dL (8.4-25.7); CK (CPK) 57 U/L (30-200); Calc. Creatinine Clearance 0 mL/min (70-130); Calcium 9.4 mg/dL (7.8-10.44); Carbon Dioxide 23 mmol/L (23-31); Chloride 97 mmol/L (98-107); Estimated GFR-MDRD Greater than 90; Globulin 3.8 g/dL (2.4-3.5); Glucose 222 mg/dL (80-115); Potassium 4.3 mmol/L (3.5-5.1); Protein, Total 7.1 g/dL (5.8-8.1); Sodium 129 mmol/L (136-145)
[2018-07-11 03:15] LABS: CKMB 1.4 ng/mL (0-6.6); Troponin I Less than 0.010 ng/mL (< 0.028)
[2018-07-11 03:21] LABS: Band 4 % (5-11); Hypochromia SLIGHT = 6-15 cells (100X) (0-5/hpf); Lymphocytes 4 % (21-51); MDiff Complete? YES; Monocytes 4 % (0-10); Neutrophil 88 % (42-75); PLT Morphology Comment Appears Adequate; Polychromasia SLIGHT = 2-3 cells (100X) (0-2/hpf)
[2018-07-11 03:25] LABS: Renal Epithelial None Seen HPF (0-3); Transitional Epithelial NONE SEEN HPF (0-3)
[2018-07-11] MEDS ORDERED: MEROPENEM 1 GM/50 ML 1 GM in Premix Bag 1 BAG IVPB SCH (05:45)
--- NOTE | 2018-07-11 08:49 | CT ---
PRELIMINARY REPORT/[facility]/EMERGENTY AFTER-HOURS PROCEDURE CT Abdomen and Pelvis With Intravenous Contrast EXAM DATE/TIME: 07/11/2018 3:26 AM CLINICAL HISTORY: 68 years old, male; Pain; Abdominal pain; Generalized; Prior surgery; Patient HX: Er 7; 68 yo m prese nts to ed with fever. Ems reports PT has fever of 100.1, with associated cough. Family reports PT has had abdominal pain (generalized) and vomiting. Family reports PT has been in and out of hospital for similar symptoms, most recent was last week. Family reports PT is nonverbal baseline. Redman rgical HX of colon resection from colon CA, surgical history of hernia repair. Colectomy TECHNIQUE: Axial computed tomography images of the abdomen and pelvis with intravenous contrast. Coronal reformatted images were created and reviewed. COMPARISON: No relevant prior studies available. FINDINGS: Lower thorax: There is probably a loculated pleural effusion at the RIGHT lung base. There is thicken ing of the pleural moscoso raising the possibility of empyema. There is consolidation/collapse of the R IGHT lower lobe. There is nonspecific hypoattenuation within the collapsed RIGHT lower lobe which extends to the periphery and may be continuous with the pleural effusion possibly representing bronchopleural fistula. There is extensive nonspecific calcification within the collapsed RIGHT lower lobe possibly representing granulomatous organism or environmental exposure. ABDOMEN: Liver: There are no focal liver lesions identified. Gallbladder and bile ducts: The gallbladder is normal. There is no evidence of biliary ductal dilatio n. Pancreas: The pancreas appears normal. Spleen: The spleen is normal. Adrenals: The adrenal glands are normal. Kidneys and ureters: There is a focal left renal hypodensity that cannot be further characterized on the current examination. There is a nonobstructing RIGHT renal pelvic calculus. Stomach and bowel: The stomach is normal. The duodenum is unremarkable. Appendix: No evidence of appendicitis. PELVIS: Bladder: The bladder is normal. Reproductive: The prostate gland and seminal vesicles are normal. ABDOMEN and PELVIS: Intraperitoneal space: Normal. No free air. No significant fluid collection. Bones/joints: No acute fracture. No dislocation. Soft tissues: Unremarkable. Vasculature: Normal. No abdominal aortic aneurysm. Lymph nodes: Normal. No enlarged lymph nodes. IMPRESSION: 1. Loculated RIGHT pleural effusion and/or empyema, incompletely visualized. 2. RIGHT lower lobe lung collapse with nonspecific hypoattenuation possibly contiguous with the locul ated pleural effusion raising the possibility of bronchopleural fistula. THIS REPORT CONTAINS FINDINGS THAT MAY BE CRITICAL TO PATIENT CARE. The findings were verbally commun icated via telephone conference with PINEDA PEREZ at 3:47 AM SALES CONSULTANT RESIDENTIAL MANAGER on 07/11/2018. The findings wer e acknowledged and understood. Thank you for allowing us to participate in the care of your patient. Dictated and Authenticated by: Lc Laughlin MD 07/11/2018 3:49 AM Central Time ([place] & [place]) FINAL REPORT CT ABDOMEN AND PELVIS WITH CONTRAST: Date: 07/11/18 HISTORY: Fever, emesis. Cough. Abdominal pain. Vomiting. COMPARISON: CT abdomen and pelvis dated 06/11/18. FINDINGS: There appears to be a loculated right pleural effusion with aspirated barium. Large lipoma interposed within the right gluteus medius and minimus muscles. There is moderate distention of the rectum. There is evidence of prior ventral hernia repair, which a ppears to be intact. There is no free intraperitoneal gas or fluid. No hydronephrosis. The liver and gallbladder are unremarkable. There is a calculus of the right renal collecting system measuring up to 8.0 mm. Bones are osteopenic. Advanced degenerative changes of the SI joints. IMPRESSION: Findings and impression are concordant with the preliminary report by Delfino. POS: [facility]
--- NOTE | 2018-07-11 08:57 | CT ---
PRELIMINARY REPORT/[facility]/EMERGENTY AFTER-HOURS PROCEDURE Addendum created by Lc Luaghlin MD on 07/11/2018 5:31 AM Central Time ([place] & [place]) THIS REPORT CONTA INS FINDINGS THAT MAY BE CRITICAL TO PATIENT CARE. The findings were verbally communicated via teleph one conference with PINEDA PEREZ at 5:30 AM STATE FIRE MARSHAL on 07/11/2018. The findings were acknowledged an d understood. Note that atypical infection is not excluded. Initial Report created on 07/11/2018 5:23 AM Central Time ([place] & [place]) CT Chest Without Intravenous Contrast EXAM DATE/TIME: 07/11/2018 4:57 AM CLINICAL HISTORY: 68 years old, male; Abnormal findings; Other: Abnormal CT abd/pel; Patient HX: Eval for possible pleu ral effusions TECHNIQUE: Axial computed tomography images of the chest without intravenous contrast. Coronal reformatted images were created and reviewed. COMPARISON: No relevant prior studies available. FINDINGS: Lungs: There is mass like collapse of the RIGHT lower lobe possibly representing neoplasm versus infe ction. There are nonspecific calcifications within the bilateral lungs, predominantly within the brian apsed RIGHT lower lobe possibly from granulomatous organism or environmental exposure. There are nodular opacities seen within the LEFT lung some calcified and others solid. Pleural space: There is a complex probably loculated RIGHT pleural effusion with areas of pleural thi ckening suspicious for empyema. Nonspecific area of hypoattenuation noted within the peripheral colla psed RIGHT lower lobe, may represent hypoattenuating pulmonary abscess which may have ruptured into t he adjacent pleura. Heart: Normal. No cardiomegaly. No pericardial effusion. Aorta: Normal. No aortic aneurysm. Lymph nodes: There are several prominent lymph nodes measuring up to 1 cm in the AP window. Bones/joints: There is nonspecific mottled appearance of the skeletal bones. Soft tissues: Unremarkable. IMPRESSION: 1. There is a complex probably loculated RIGHT pleural effusion with areas of pleural thickening susp icious for empyema. 2. There is mass like collapse of the RIGHT lower lobe possibly representing infection and/or neoplas m. 3. Nonspecific area of hypoattenuation noted within the peripheral collapsed RIGHT lower lobe may rep resent hypoattenuating pulmonary abscess which may have ruptured into the adjacent pleura. No pleural air is demonstrated to suggest bronchopleural fistula at this time however a fistulous connection between the pleura and a pulmonary abscess possible. Thank you for allowing us to participate in the care of your patient. Dictated and Authenticated by: Lc Laughlin MD 07/11/2018 5:23 AM Central Time ([place] & [place]) FINAL REPORT CT CHEST WITHOUT CONTRAST: Date: 07/11/18 HISTORY: Chest pain, cough. COMPARISON: Chest radiograph from same date. CT chest dated 12/12/17. FINDINGS: There is a large loculated right pleural effusion. There is high attenuation material within the post erior segment right lower lobe which may reflect aspirated barium. Multiple partially calcified pulmo nary nodules. Bones are osteopenic. No acute displaced rib fracture. IMPRESSION: Findings and impression are concordant with the preliminary report by Delfino. POS: [facility]
[2018-07-11] MEDS ORDERED: Ondansetron PF 4 MG/2 ML Vial IVP PRN ×2 (09:09→18:46)
[2018-07-11] MEDS ORDERED: Acetaminophen 325 MG TAB PO PRN (09:09)
[2018-07-11] MEDS ORDERED: Ondansetron ODT 4 MG TAB SL PRN ×2 (09:09→18:46)
[2018-07-11] MEDS ORDERED: Prevnar 13-Val Conj/PF 0.5 ML SYRINGE IM ONE (09:15)
--- NOTE | 2018-07-11 09:23 | RAD ---
PORTABLE CHEST 1 VIEW: Date: 07/11/18 Time: 0128 hours HISTORY: Fever. FINDINGS/IMPRESSION: The heart is enlarged. There is a loculated right pleural effusion. There is an infiltrate at the rig ht lung base. No pneumothoraces are seen. A calcified granuloma is noted in the left mid lung. POS: [facility]
[2018-07-11] MEDS ORDERED: PROVENTIL INHALER 6.7 G (200 INHALATIONS) INH PRN (13:08)
[2018-07-11] MEDS ORDERED: Dextrose 5% in Water 1,000 ML IV PRN (13:40)
[2018-07-11] MEDS ORDERED: Dextrose 50% Abboject 50 ML SYRINGE SLOW IVP PRN (13:40)
[2018-07-11] MEDS ORDERED: metroNIDAZOLE 500 MG in Premix Bag 1 BAG IVPB SCH (14:00)
--- NOTE | 2018-07-11 14:31 | HP ---
DATE OF ADMISSION: 07/11/2018 REASON FOR ADMISSION: Fever, sweating, and some projectile vomiting on and off. HISTORY OF PRESENT ILLNESS: The patient is a 68-year-old male with past medical history of autism; d iabetes mellitus, type 2; hypertension; colon cancer; who is nonverbal, who was brought to the emerge ncy room for evaluation after the caregiver found him to have some fever to touch and sweating. Appa rently, he has on and off projectile vomiting for several months. He gets admitted to the hospital [facility] frequently for multiple different reasons. The last time he was here in June, he had some devin sea, vomiting, and he had scoping done and removal of multiple polyps, which turned out to be benign on pathology report. His primary care doctor is Dr. Jin. He is FULL CODE per guardian/caregiver. While in the emergency room, his temperature was measured at 100.4. He is admitted to the hospital for further evaluation of his problem. He was found to have some pain on the right side of the lung . So, pipe threader will be consulted. PAST MEDICAL HISTORY: Positive for: 1. Autism. 2. Kidney stones. 3. Type 2 diabetes mellitus. 4. Hypertension. 5. History of colon cancer, status post surgery. 6. History of hyponatremia. 7. History of aspiration. 8. Multiple colonic polyps, removed. PAST SURGICAL HISTORY: 1. Colon resection of the right side. 2. Bilateral eye surgery for cataracts removal. 3. Status post colectomy hernia repair. FAMILY HISTORY: Unknown. Parents are unknown. ALLERGIES: PENICILLIN. CURRENT MEDICATIONS: Multivitamin 1 a day, ferrous sulfate 325 mg 1 a day, D3 vitamin 1000 units onc e a day, aspirin 81 mg once a day, naproxen 500 mg every 12 hours one tablet, Bactrim-DS 800/160 one tablet twice a day, albuterol sulfate inhaler p.r.n., losartan 25 mg unknown frequency, and omeprazol e 10 mg unknown frequency. SOCIAL HISTORY: No history of alcohol intake, cigarette smoking, or illicit drug use. REVIEW OF SYSTEMS: The patient is nonverbal. All information is taken from the caregiver/guardian. Apparently, he has some episodes of constipation. He has some projectile vomiting on and off after he has some cough. Also, as mentioned above, fever, sweating, and most likely, he has some sleep networker ea issue according to his caregiver. Otherwise, review of systems is negative. PHYSICAL EXAMINATION: VITAL SIGNS: Blood pressure is 147/78, pulse is 109, temperature is 100.1, respirations 16, O2 satur ation is 93% on room air. GENERAL: He is not very cooperative. When I asked him to follow my commands, he does not want to do that. He does not want to open his eyes to be examined. He does not open his mouth to be examined. LUNGS: Clear in the upper parts and diminished in the right base with few crackles there, no wheezin g. HEART: S1 and S2 normal, no S3, no S4. ABDOMEN: Soft and nontender. There is post-incisional hernia in the upper abdomen, not incarcerated . Bowel sounds are present. No organomegaly. EXTREMITIES: No clubbing, cyanosis, or edema. He has bilateral flat feet. Pulses are good on both tibialis posterior and dorsalis pedis arteries, similar bilaterally. NEUROLOGICAL EXAMINATION: He does not follow my commands, so evaluation is very difficult at this po int. SKIN: No rash or erythema. PSYCHIATRIC: Evaluation does not show any significant abdominal abnormalities. LABORATORY AND X-RAY FINDINGS: Labs showed white count of 15.8, hemoglobin of 12.7, hematocrit 34.9, platelet count is 388,000. Neutrophils 88%. Sodium of 129, potassium 4.3, chloride 97, CO2 of 23, BUN 9, creatinine 0.69, glucose 222, albumin 3.3. The rest of chemistry panel within normal limits. Urinalysis showed 100 of protein, 100 of glucose, 40 of ketones, large amount of blood, 21-50 rbc's in high power field and 4-6 hyaline casts, no bacteria. IMAGES: 1. CT of the chest showed, A. Complex, probably loculated right pleural effusion with areas of pleural thickening, suspicious f or empyema. B. Mass-like collapse of the right lower lobe, possibly representing infection and/or neoplasm. C. No specific area of hypoattenuation noted within the peripheral collapsed right lower lobe, may r epresent hypoattenuating pulmonary abscess, which may have ruptured into the adjacent pleura. 2. Chest x-ray, which shows infiltrate at the right lung base. No pneumothoraces. There is a locul ated right pleural effusion. The heart is enlarged. There is a calcified granuloma in the left mid lung. 3. CT of the pelvis and abdomen, which showed normal intraperitoneal space, normal bladder, normal p rostate, and seminal vesicles. No abdominal aortic aneurysm, no enlarged lymph nodes. There is a ca lculus of the right renal collecting system measuring up to 8 mm. There is advanced degenerative adelita nges of the SI joints. There is a moderate distention of the rectum. Liver and gallbladder are unre markable. IMPRESSION: 1. Fever and sweating, rule out sepsis. This is most likely secondary to his empyema, which was fou nd on the CT of the chest. 2. Possible aspiration pneumonia. 3. Autism. 4. Diabetes mellitus, type 2, with elevated glycemia. 5. Hypertension. 6. Hyponatremia with hypochloremia. 7. History of colon cancer, status post surgery. 8. Kidney stone, localized to the right renal collecting system, measuring up to 8 mm. 9. Nonverbal patient. 10. History of cataract surgery bilaterally. 11. History of colectomy for colon cancer. PLAN: Admission to medical floor. Condition is fair. Activity: Bed rest and bathroom privileges w ith assistance if possible. The patient is able to ambulate. IV normal saline at 75 mL per hour. N .p.o. for now. Then modified barium swallow studies. The patient received vancomycin and meropenem in the emergency room. We will continue those 2. We will add Flagyl to cover for anaerobes. We bro l have pulmonary consultation with Dr. Serrano; the patient is established with him. We will continu e his home medications. We will use Lovenox 40 mg subcutaneously for DVT prophylaxis and SCDs.
[2018-07-11] MEDS: Sodium Chloride 0.9% 1,000 ML IV SCH (14:51)
--- NOTE | 2018-07-11 15:41 | RAD ---
BARIUM SWALLOW WITH SPEECH THERAPIST 07/11/18 HISTORY: 68-year-old male with history of aspiration, oropharyngeal dysphagia with feeding difficulty. FLUOROSCOPY TIME: 1 minute. DOSE: 2.36 mGy. There were two episodes of penetration when the patient swallowed large swallows of thin barium from a cup. Remainder of the study was overtly unremarkable. No tammie aspiration. IMPRESSION: Minimal penetration with thin liquids with the patient swallowing large swallow from cup. For additio nal findings and recommendations, please see speech therapy report. POS: [facility]
[2018-07-11] MEDS ORDERED: Iopamidol 370 76% 100 ML VIAL ONE (15:49)
[2018-07-11] MEDS: Clindamycin/D5W 600 MG in Premix Bag 1 BAG IVPB SCH (17:07)
[2018-07-11] MEDS: Aspirin 81 mg Enteric Coated Tablet PO SCH (17:08)
[2018-07-11] MEDS: HumaLOG 300 UNITS/3 ML VIAL SC PRN ×2 (17:20→20:49)
[2018-07-11] MEDS: Enoxaparin Sodium 40 MG/0.4 ML SYRINGE SC SCH (20:48)
[2018-07-11] MEDS: Lovastatin 20 MG TAB PO SCH (20:49)
[2018-07-11] MEDS ORDERED: Vancomycin HCl 1 GM in Premix Bag 1 BAG IVPB SCH (21:00)
--- NOTE | 2018-07-12 00:36 | CON ---
DATE OF CONSULTATION: 07/11/2018 SERVICE: Pulmonary Medicine. REASON FOR CONSULTATION: Empyema. HISTORY OF PRESENT ILLNESS: Patient is a 68-year-old white male with past medical history significant for autism, who is mute. He is quite impulsive. I know him from an outpatient setting. We are following him for a small pulmonary nodule, which essentially had grown over a period of 2 years. That being said, he came in with an empyema. He was having a month of fevers or chills, not feeling very good. He got much more severe over the past 4 or 5 days. He became listless and had no energy. As such, his provider, Ericka, brought him into the emergency department. At that location, he was given some antibiotics. A CT of the belly was abnormal prompting CT of the chest. This proved that he had loculated effusion on the right and infiltrate in the lung. Underlying mass cannot be excluded, however. The patient cannot provide any additional elements of the history, because he is currently sleepy. That being said, when I am not looking at him, he will keep one eye opened. When I look at him, he will probably close his eyes. PAST MEDICAL HISTORY: 1. Autism. 2. Type 2 diabetes mellitus. 3. Nephrolithiasis. 4. Hypertension. PAST SURGICAL HISTORY: 1. Resection of the colon on the right. 2. Eye surgery for cataracts, bilateral. 3. Incisional hernia repair. FAMILY HISTORY: Noncontributory. SOCIAL HISTORY: Negative for alcohol, tobacco, or illicit drug use. Ms. Barnett , his provider cares for him. ALLERGIES: PENICILLIN. MEDICATIONS: List of inpatient medications reviewed and updated. REVIEW OF SYSTEMS: This cannot be obtained, as patient is nonverbal. PHYSICAL EXAMINATION: VITAL SIGNS: T-max 101.6, pulse 114, blood pressure 136/80, respirations 16, saturation 92% on room air. GENERAL: Patient is awake and alert. When you look at him however, he faint sleeping. HEENT: Normocephalic, atraumatic. Sclerae white, conjunctivae pink. Oral and nasal mucosa is moist without lesions. LUNGS: Rhonchi are present and predominate throughout the right lung field. There is no prolonged expiratory phase, wheezing, or crackles present. HEART: Normal rate. Regular. ABDOMEN: Soft, nontender, nondistended. Bowel sounds are positive. MUSCULOSKELETAL: No cyanosis or clubbing. There is no pitting in the bilateral lower extremities. NEUROLOGIC: Grossly nonfocal. LABORATORY DATA: WBC 15.8, hemoglobin 12.7, platelets 388,000. Basic metabolic profile, liver function studies are essentially unremarkable except for sodium of 129. Lactate is unremarkable. Troponin is negative x1. Urinalysis is essentially negative except for glycosuria, proteinuria, ketonuria. There is red blood cells present without any whites. Influenza A and B is negative, urine cultures negative to date. IMAGIN. Chest x-ray from 3 days ago demonstrates no acute cardiopulmonary abnormality. 2. CT of the abdomen and pelvis demonstrates no acute intra-abdominal process. 3. Chest x-ray demonstrates interval development of a right-sided loculated effusion. 4. CT of the chest demonstrates loculated right-sided pleural effusion and also free flowing effusion in the dependent region. There is an infiltrate with possible abscess present. Pulmonary nodules not evaluated on this study. 5. Modified barium-swallow demonstrates minimal penetration with thin liquids. ASSESSMENT: 1. Community-acquired pneumonia. 2. Empyema, suspected. 3. History of pulmonary nodule. 4. Autism with mutism. DISCUSSION AND PLAN: I talked to Ericka, the caregiver. This is a slightly difficult situation. She does not want to prolong the patient's pain or suffering. She asked me to promis that he does not experience any pain or agitation throughout the course of the treatment. I simply can do that. I suggested that were going to minimize any type of discomforts that Jeff experiences. That being said, the definitive therapy for this will be evacuation of that space with thoracoscopic procedure. An alternative would be putting chest tubes in and instilling them with TPA and DNAs. Other alternatives include empiric treatment with antibiotics for protracted course without definitive therapy for the empyema, or transition over to comfort care only and move in the direction of hospice. The risks and benefits of all of these things were discussed with . Ericka. She is not willing to make a decision at this time about which treatment course to move forward with. In the meantime, I would like to undergo thoracentesis so that we can prove that this space is infected. I know Mr. Lares from my clinic. He is quite impulsive and stands up and sits down abruptly without warning. I do not think it do well with a thoracostomy drains in place for protracted course. As such, I think the best option would be for him to undergo a VATS decortication and leave him on mechanical ventilation for 24 to 48 hours after the procedure until were likely get the tubes out in a short period. Antibiotics have been adjusted to provide coverage for typical organisms, atypical organisms, and also anaerobic organisms. Ms. Barnett does appreciate that by not providing us with a course of action moving forward, that she is delaying therapy and could potentially complicate his treatment course. That being said, she wanted to talk to people in her community, behavioral health therapist, and other people that she trusts around her care group before even considering the thoracentesis at this point. 70 minutes have been devoted to this patient in various activities. I personally reviewed all imaging studies and laboratory data noted within this document. For fifty percent of this time, I was interacting with the patient at the bedside or coordinating care with the care team. For the remainder of the time I was immediately available to the patient in the hospital unit. CLARENCE
[2018-07-12] MEDS: Clindamycin/D5W 600 MG in Premix Bag 1 BAG IVPB SCH ×4 (00:50→17:03)
[2018-07-12] MEDS: Sodium Chloride 0.9% 1,000 ML IV SCH ×3 (04:27→15:31)
[2018-07-12 05:05] LABS: INR-International Normal Ratio 1.8; PTT 39.5 SEC (22.9-36.1)
[2018-07-12] MEDS: Acetaminophen 325 MG TAB PO PRN (05:28)
[2018-07-12] MEDS: Cholecalciferol (Vitamin D3) 400 UNITS TAB PO SCH (08:59)
[2018-07-12] MEDS: Ascorbic Acid 500 mg Chewable Tablet PO SCH (08:59)
[2018-07-12] MEDS: Fluticasone Propionate Nasal Spray 16 gm Bottle NASAL SCH (08:59)
[2018-07-12] MEDS: Multivit, Therapeutic 1 TAB PO SCH (08:59)
[2018-07-12] MEDS ORDERED: Midazolam HCl 2 mg/2 ml Vial ONE (13:06)
[2018-07-12] MEDS ORDERED: Sodium Bicarbonate 2.5 MEQ/5 ML VIAL ONE (13:06)
[2018-07-12] MEDS ORDERED: Fentanyl 100 MCG/2 ML VIAL ONE (13:08)
--- NOTE | 2018-07-12 14:22 | RAD ---
CHEST ONE VIEW: History: Status post thoracentesis. Comparison: 07-11-18 FINDINGS: Cardiac silhouette is magnified by projection. Pulmonary vasculature is slightly engorged. Loculated right pleural fluid has decreased slightly since the prior study. No evidence of pneumothorax. IMPRESSION: Interval decrease loculated right pleural fluid, consistent with recent thoracentesis. No evidence of pneumothorax. POS: [facility]
[2018-07-12 15:21] LABS: Pleural Fluid, Protein 3.8 g/dL
[2018-07-12 15:26] LABS: BF Color Yellow; Body Fluid Source THORACENTESIS FLD; Clarity Hazy (Clear); Tube # EDTA; WBC Background Count 0.01; WBC/NonHematic-Auto 513 /cumm
[2018-07-12 15:27] LABS: BF RBC Count - Manual 856 /cumm
--- NOTE | 2018-07-12 15:36 | CT ---
CT GUIDED THORACENTESIS: 07/12/18 CONSCIOUS SEDATION; 1 mg Versed, IV. Approximately 30 minutes were spent with the patient before the procedure. HISTORY: Loculated pleural fluid. FINDINGS: After explaining the procedure and obtaining informed consent, limited CT imaging of the chest was pr eformed. Sterile technique, buffered local anesthesia, CT guidance, conscious sedation, and a right a nterolateral approach were used to carefully advance a 19 gauged Yueh needle and catheter into the lo culated fluid along the right lateral pleural space. Catheter was left to drain a total volume of 280 mL slightly cloudy yellow liquid. Fluid was sent to laboratory for analysis. The catheter was remove d. No evidence of complication. Patient tolerated the procedure well and was returned in unchanged co ndition. IMPRESSION: Technically successful CT guided right thoracentesis. Pathology is pending. POS: [facility]
[2018-07-12 16:05] LABS: BF Segmented Neutrophils 92 %; Lymphocytes 8 %
--- NOTE | 2018-07-12 16:19 | PRG ---
DATE OF SERVICE: 07/12/2018 SERVICE: Pulmonary Medicine. INTERVAL HISTORY: This morning, the patient did not really have any events. Overnight, Ms. Barnett decided that she would like to proceed with the thoracentesis. As such, those consents were signed. Otherwise, there were no significant events overnight. His fever profile has improved very nicely. PHYSICAL EXAMINATION: VITAL SIGNS: Afebrile, pulse 107, blood pressure 131/75, respirations 22, saturation 92% on room air. GENERAL: The patient is awake and alert, in no apparent distress. LUNGS: Decent air entry. Rhonchi are present. No prolonged expiratory phase or wheezing appreciated. HEART: Normal rate, regular. ABDOMEN: Soft, nontender, nondistended. Bowel sounds are positive. MUSCULOSKELETAL: No cyanosis or clubbing. There is no pitting in the bilateral lower extremities. NEUROLOGIC: Grossly nonfocal. LABORATORY DATA: Blood sugar ranges from 95-163. / blood cultures are growing coag negative Staph. Influenza A and B is negative. Urine culture is negative to date. Pleural fluid is currently pending. ASSESSMENT: 1. Community-acquired pneumonia. 2. Bacteremia secondary to coag negative Staph in 10/07, likely a real species. 3. Empyema, suspected. 4. History of pulmonary nodule. 5. Autism, with mutism. DISCUSSION AND PLAN: We will get an echocardiogram to make certain that there is no obvious vegetation on any of these valves. She has consented to move forward with thoracentesis. If this space proves to be infected, Thoracic Surgery consultation will be placed. Ultimately, I do not think he will do well being awake with chest tubes in. As such, my plan would be to leave him on mechanical ventilation for 24-48 hours after a surgical intervention as chest tubes will be required. In Mr. Lares, chest tube placement with b.i.d. tPA /DNase is not a good treatment strategy for him given his autism, and slightly impulsive behavior. Alternatively, we could treat with a protracted course of antibiotics, but disease recurrence should be expected after these antibiotics are interrupted and ultimately definitive therapy would likely still be required. CLARENCE
[2018-07-12] MEDS: Aspirin 81 mg Enteric Coated Tablet PO SCH (17:03)
[2018-07-12] MEDS: HumaLOG 300 UNITS/3 ML VIAL SC PRN (18:31)
--- NOTE | 2018-07-12 18:59 | PRG ---
DATE OF SERVICE: 07/12/2018 SUBJECTIVE: he was evaluated again by speech therapist. PHYSICAL EXAMINATION: VITAL SIGNS: Blood pressure is 147/94, pulse is 109, respiratory rate is 22, temperature is 98.2, O2 saturation 95% on room air. GENERAL: He does not follow my commands. CHEST: He is not too happy to let me examine his body, but by listening to his chest, breath sounds are diminished and a few crackles present in both bases. S1, S2, somewhat distant. No S3, no S4. ABDOMEN: Soft, nontender, nondistended. EXTREMITIES: No clubbing, cyanosis, or edema. LABORATORY DATA: Showed glucose down to 95. Thoracentesis results, yellow fluid, hazy, pH of 7.2, w carlo count of 56, rbc's 92, neutrophils 8, lymphocytes 3.8, protein pleural LDH 713 and pleural gluco se 25. Microbiology: Two blood cultures came back positive for coagulase negative Staphylococcus. Urine culture came back negative and pleural fluid preliminary showed few wbc's on Gram stain and no organisms seen. Lung CT was done. On the chest x-ray post-procedure, there is no pneumothorax. The patient clinically is doing better. IMPRESSION: 1. Pneumonia. 2. Bacteremia with coagulase-negative Staphylococcus epidermidis, 2/2. 3. Empyema, most likely 4. Autism. 5. Some mild aspiration with liquids. The patient requires some modification of his liquids to prev ent aspiration as per speech therapist. 6. Diabetes mellitus type 2, significantly improved. 7. History of colon cancer, status post colectomy. 8. Kidney stone localized to the right renal collecting system measuring up to 8 mm. 9. Hyponatremia, hypochloremia. 10. Hypertension. 11. History of cataract surgery bilaterally. 12. Nonverbal. PLAN: Dr. Serrano recommends echocardiogram to rule out any vegetations on his cardiac valves. The patient was seen by speech therapist again and they are okay to go back to previous recommendations w ith some thickened liquids. The patient was switched to levofloxacin and clindamycin by pulmonologis t and the plan is to consult thoracic surgeon. We will continue his sliding scale with short-acting insulin.
[2018-07-12] MEDS: Enoxaparin Sodium 40 MG/0.4 ML SYRINGE SC SCH (20:44)
[2018-07-12] MEDS: Lovastatin 20 MG TAB PO SCH (20:44)
[2018-07-13] MEDS: Clindamycin/D5W 600 MG in Premix Bag 1 BAG IVPB SCH ×5 (00:10→18:41)
[2018-07-13] MEDS: Acetaminophen 325 MG TAB PO PRN ×2 (00:31→15:33)
[2018-07-13 05:03] LABS: Anion Gap 11 mmol/L (10-20); BUN (Urea Nitrogen) 11 mg/dL (8.4-25.7); Calc. Creatinine Clearance 108 mL/min (70-130); Calcium 8.9 mg/dL (7.8-10.44); Carbon Dioxide 21 mmol/L (23-31); Chloride 108 mmol/L (98-107); Estimated GFR-MDRD Greater than 90; Glucose 114 mg/dL (80-115); Magnesium 1.4 mg/dL (1.6-2.6); Phosphorus 2.6 mg/dL (2.3-4.7); Potassium 3.9 mmol/L (3.5-5.1); Sodium 136 mmol/L (136-145)
[2018-07-13 05:50] LABS: Band 7 % (5-11); Hemoglobin 11.1 g/dL (14.0-18.0); Lymphocytes 2 % (21-51); MDiff Complete? YES; Mean Corpuscular HGB CONC 31.7 g/dL (32.0-36.0); Mean Corpuscular Hemoglobin 28.6 pg (27.0-31.0); Mean Corpuscular Volume 90.2 fL (78.0-98.0); Monocytes 6 % (0-10); Neutrophil 85 % (42-75); Platelet Count 354 thou/uL (130-400); RBC Distribution Width 13.1 % (11.5-14.5); Red Blood Cell (RBC) Count 3.87 mill/uL (4.70-6.10); White Blood Cell (WBC) Count 21.6 thou/uL (4.8-10.8)
[2018-07-13] MEDS: Ascorbic Acid 500 mg Chewable Tablet PO SCH (08:19)
[2018-07-13] MEDS: Multivit, Therapeutic 1 TAB PO SCH (08:19)
[2018-07-13] MEDS: Cholecalciferol (Vitamin D3) 400 UNITS TAB PO SCH (08:19)
[2018-07-13] MEDS: Fluticasone Propionate Nasal Spray 16 gm Bottle NASAL SCH (08:22)
[2018-07-13] MEDS: Sodium Chloride 0.9% 1,000 ML IV SCH (11:55)
--- NOTE | 2018-07-13 12:29 | CON ---
DATE OF CONSULTATION: 07/13/2018 HISTORY OF PRESENT ILLNESS: This is a 68-year-old gentleman with autism who has a full-time caregive r who presented at this hospitalization and was found to have an empyema. He may have been having so me chills and fever, perhaps more listless than normal. CT scan showed a loculated right pleural eff usion and a chest x-ray from about 10 days earlier appeared rather unremarkable. PAST MEDICAL HISTORY: Includes autism, type 2 diabetes mellitus, nephrolithiasis, hypertension. PAST SURGICAL HISTORY: Includes colon resection complicated by incisional hernia, previous cataracts . SOCIAL HISTORY: He lives with Ericka, who is his legal guardian. ALLERGIES: PENICILLIN. HOME MEDICATIONS: Include albuterol inhaler, aspirin, Flonase, lovastatin, vitamin supplements. He has had the addition of levofloxacin and clindamycin. LABORATORY DATA: Micro reports include Staph epidermidis and blood cultures x2 and body fluid cultur e is pending. PH of his thoracentesis was 7.2. PHYSICAL EXAMINATION: GENERAL: The patient appears his stated age. Height 5 feet 2 inches, weight 144. VITAL SIGNS: Heart rate 110-120 regular, blood pressure elevated at 167. He is afebrile. NECK: No carotid bruits. LUNGS: Clear to auscultation anteriorly. CARDIAC: Resting tachycardia. ABDOMEN: Protuberant, large ventral hernia, midline abdominal scar. EXTREMITIES: No peripheral edema with palpable dorsalis pedis pulses in both feet. PLAN: I had a long discussion with Ericka and informed consent has been obtained for right thoracosco py/thoracotomy tomorrow.
[2018-07-13] MEDS ORDERED: Magnesium 2 GM/50 ML 2 GM in Premix Bag 1 BAG IVPB SCH (14:30)
--- NOTE | 2018-07-13 14:33 | PQF ---
CLINICAL DOCUMENTATION IMPROVEMENT CLARIFICATION FORM: ICD-10 Updated PLEASE DO AN ADDENDUM TO THE PROGRESS NOTE WITH ANY DOCUMENTATION UPDATES OR ADDITIONS AND CARRY THROUGH TO DC SUMMARY. THANK YOU. DATE: 07/13/18 ATTN: Dr. Gonsales Please exercise your independent, professional judgment in responding to the clarification form. Clinical indicators are provided on the bottom of this form for your review Please check appropriate box(s) to clarify if the following diagnosis has been ruled in or ruled out: RULE OUT SEPSIS (H&P) [ ] Ruled in diagnosis [ x ] Continue to treat [ ] Resolved [ ] Ruled out diagnosis [ ] Cannot rule out diagnosis [ ] Other diagnosis [ ] Unable to determine In addition, please specify: Present on Admission (POA): [ ] Yes [ ] No [ ] Unable to determine For continuity of documentation, please document condition throughout progress notes and discharge summary. Thank You. CLINICAL INDICATORS - SIGNS / SYMPTOMS / LABS H&P: IN THE ER, HIS TEMP WAS 100.4 BP 147/78 PULSE 109 TEMP 100.1. RESP. 16 WHITE COUNT 15.8 FEVER AND SWEATING, RULE OUT SEPSIS. THIS IS MOST LIKELY SECONDARY TO HIS EMPYEMA, FOUND ON CT OF THE CHEST. PN 07/12: PNEUMONIA BACTEREMIA WITH COAGULASE-NEGATIVE STAPHYLOCOCCUS EPIDERMIDIS, 2/2 EMPYEMA , MOST LIKELY RISKS: H&P 07/11: POSSIBLE ASPIRATION PNEUMONIA. AUTISM. DM 2, HTN. TREATMENT: ORDER 07/11: CLINDAMYCIN 600 MG IV Q6 HR ORDER 07/11: LEVAQUIN 750 MG IV Thank you, Veronica (This form is maintained as a part of the permanent medical record) 2015 [employer]. All Rights Reserved Veronica Palma RN, BSN [email or web address] Office: [phone] [facility]
[2018-07-13] MEDS ORDERED: Magnesium Sulfate 4 GM in Sodium Chloride 0.9% 250 ML 250 ML IVPB SCH (15:15)
--- NOTE | 2018-07-13 16:22 | PRG ---
DATE OF SERVICE: 07/13/2018 SERVICE: Pulmonary Medicine. INTERVAL HISTORY: The patient is doing fine from a respiratory standpoint. He is breathing comforta avis. He has no specific complaints right now. He is wide awake. He is following some simple comman ds. Otherwise, he does not appear to be in any distress. Nursing reports no overnight events. PHYSICAL EXAMINATION: VITAL SIGNS: Afebrile, pulse 117, blood pressure 171/88, respirations 22, saturation 98% on room air . GENERAL: The patient is awake and alert, in no apparent distress. LUNGS: Decent air entry. There is some rhonchi present. No crackles or wheezing are appreciated. HEART: Normal rate, regular. ABDOMEN: Soft, nontender, nondistended. Bowel sounds are positive. MUSCULOSKELETAL: No cyanosis or clubbing. No pitting in the bilateral lower extremities. NEUROLOGIC: Grossly nonfocal. LABORATORY DATA: Potassium 3.9, magnesium 1.4. Basic metabolic profile and phosphorus are otherwise unremarkable. WBC 21.6, hemoglobin 11.1, platelets 354,000 with 85% neutrophils. LDH 713, glucose 25, total protein 3.8. The cell type predominantly is neutrophils. PH 7.2, which is the lowest limi t of this study. Pleural fluid cultures negative to date. Blood cultures x2 are growing Staph epide rmidis, which is essentially faith resistant to anything except for clindamycin and vancomycin. ASSESSMENT: 1. Severe sepsis. 2. Community-acquired pneumonia. 3. Bacteremia secondary to coag negative staph. 4. Empyema versus complicated parapneumonic pleural effusion. 5. History of pulmonary nodule. 6. Autism with mutism. DISCUSSION AND PLAN: I will put in an Infectious Disease consultation. The read on the echocardiogr am is currently pending. Cardiovascular Surgery consultation has been placed for decortication of th e space. I will replace the magnesium and give him a laboratory holiday in the morning. Pulmonary C ritical Care will continue to follow along. It is my plan for the patient to recover from his surger y in the ICU. I will likely leave him on mechanical ventilation for a day or two.
--- NOTE | 2018-07-13 16:40 | PRG ---
DATE OF SERVICE: 07/13/2018 SUBJECTIVE: The patient is seen and examined at the bedside. His caregiver is in the room during my visit and we have a long discussion about the management and further steps of Mr. Lares's treatment. OBJECTIVE: VITAL SIGNS: Blood pressure is 171/88, pulse is 117, temperature is 98.6, respiratory rate is 22, O2 saturation is 91% on room air. HEENT: Head is atraumatic, normocephalic. He is not willing to participate in my detailed examinati on, but he lets me listen to his lungs. Breath sounds are diminished, mainly in the right base. No wheezing. HEART: S1, S2 normal, no S3, no S4. ABDOMEN: Soft, nontender, mildly distended. Bowel sounds are present, no organomegaly. EXTREMITIES: No clubbing, cyanosis, or edema. NEUROLOGIC: He does not follow my commands. This is a very limited examination secondary to the pat ient's attitude towards my testing. LABORATORY DATA: Showed white count of 21.6, hemoglobin of 11.1, hematocrit 34.9, platelet count 354 . Sodium of 136, potassium 3.9, chloride 108, CO2 of 21, BUN 11, creatinine 0.6. Glycemia is rangin g from 117 to 194, magnesium 1.4. Microbiology: Gram stain of the pleural fluids showed few wbc's, no organisms. Culture is pending. Blood cultures positive for Staph epi x2. Urine no growth. IMPRESSION: 1. Empyema, status post CT-guided thoracocentesis done by radiologist. Cultures are still pending. Gram stain did not show any organisms, only few wbc's. The patient was seen by Dr. Lewis for Cardio thoracic evaluation and his caregiver agreed to go ahead with a right thoracoscopic/thoracotomy tomor row, so the informed consent was signed and it will be done tomorrow. 2. Pneumonia. 3. Bacteremia with coagulase negative Staphylococcus epidermidis, two out of two cultures. 4. Autism. 5. Some mild aspiration with liquids, on modified diet. 6. Diabetes mellitus type 2, relatively well controlled. 7. History of colon cancer, status post colectomy. 8. Partial right colectomy. 9. Kidney stone localized in the right renal collecting system measuring up to 8 mm. 10. Hyponatremia and hypochloremia, improved. 11. Hypertension, would use magnesium sulfate IV since he is deficient of magnesium and this should help her blood pressure to be better controlled since his blood pressure was running in 130s to 140s before. 12. History of cataract surgery bilaterally. 13. Nonverbal. PLAN: As mentioned above, operation tomorrow by Dr. Lewis. Echocardiogram is still pending. We bro l continue current regimen with IV antibiotics and as I mentioned above, we will give him 2 g of magn esium sulfate for magnesium level of 1.4 on today's blood. I appreciate inputs of both patient assessment coordinator and cardiovascular surgeon. We spent a lot of time talking with his caregiver and she understands t he severity of the problem and complexity of the issue, but she wants to proceed.
[2018-07-13] MEDS: Aspirin 81 mg Enteric Coated Tablet PO SCH (17:31)
[2018-07-13] MEDS: HumaLOG 300 UNITS/3 ML VIAL SC PRN (19:15)
[2018-07-13] MEDS: Lovastatin 20 MG TAB PO SCH (21:27)
[2018-07-13] MEDS: Enoxaparin Sodium 40 MG/0.4 ML SYRINGE SC SCH (21:28)
[2018-07-14] MEDS: Clindamycin/D5W 600 MG in Premix Bag 1 BAG IVPB SCH ×5 (00:01→23:29)
--- NOTE | 2018-07-14 01:07 | CON ---
DATE OF CONSULTATION: 07/13/2018 REASON FOR CONSULTATION: Empyema. HISTORY OF PRESENT ILLNESS: A 68-year-old with a history of autism, nephrolithiasis and type 2 diabe gary, also with colon cancer in remission after resection, who has had episodes of vomiting for the pa st few weeks, has had some difficulty with swallowing, had speech therapy evaluation and modification of his oral intake. He had an EGD, which showed polyps apparently and then he developed fever and w as admitted. Imaging studies showed a pleural effusion, which was noted to be loculated and ended up having a thoracentesis, which was consistent with empyema. The patient is scheduled, I believe, for decortication surgery by Dr. Lewis tomorrow. Mr. Lares has quite severe autism and is unable to inte ract with examiner. He has not had any diarrhea and no seizure activity, no abdominal pain, no bleed ing. PAST MEDICAL HISTORY: Autism, nephrolithiasis, type 2 diabetes, hypertension, colon cancer in remiss ion after resection, hyponatremia, recent episodes of aspiration, colonic polyps removed. PAST SURGICAL HISTORY: Includes partial colectomy for management of colon cancer, cataract operation . FAMILY HISTORY: Not available ALLERGIES: PENICILLIN with rash. CURRENT MEDICATIONS: Tylenol, Proventil, vitamin C, Ecotrin, clindamycin, enoxaparin, fluticasone, i nsulin, levofloxacin. PHYSICAL EXAMINATION: VITAL SIGNS: T-max 101.5, blood pressure 140/80, pulse 112, respirations 20, O2 sat is 87-91 on room air. SKIN: The patient has a peripheral IV access and voiding spontaneously. No areas of skin breakdown. No lymphadenopathy. HEENT: Ocular movements are conjugate. Pupils are 2 mm and reactive. Oral cavity with quite a few missing teeth. Remainder ones with marked decay and gum disease and periodontitis. Whitish material coating his tongue. NECK: Supple. No jugular vein distention. LUNGS: With diminished breath sounds in the right side. HEART: S1, S2, regular rate without murmurs. ABDOMEN: Soft, not distended or tender. No bladder distention. The patient has a midline hernia, w hich is a consequence of the colon resection or partial colon resection. EXTREMITIES: The patient is able to move extremities. Pulses are 1+ in dorsalis pedis. Plantar res ponses are flexure. No edema. LABORATORY DATA: White cell count is up to 21.6, hemoglobin 11, platelets 354,000, 85% neutrophils. Sodium 136, creatinine 0.6 and transaminases within normal limits. Alkaline phosphatase 74, albumin 3.3 and globulin 3.8. Imaging studies include an abdomen and pelvis CT with a loculated pleural eff usion in the right lung base and thickening of the mos[place]. CT of chest with the loculated pleural eff usion, collapse of the right lower lobe and possible lung abscess. Two sets of blood cultures with S taph epidermidis. They were collected at the same time as logged by the environmental science technician, [facility] this kind of organism. The pleural fluid with a few WBCs, no organisms seen, pH was 7.2. There were 513 WBCs with 92% neutrophils, 8% lymphocytes. Pleural LDH 713, protein 3.8. ASSESSMENT: 1. Severe autism. 2. Swallowing dysfunction with episodes of aspiration. 3. Inflammatory process right chest wall with evidence of empyema. DISCUSSION: The organisms associated are probably the ones typically seen in cases of the patients w ith aspiration and poor dentition and periodontitis with the usual mouth anaerobes, microaerophilic S treptococci, sometimes gram negative rods as well. Streptococcus pneumoniae, less likely in his case because it is more of a subacute chronic presentation. Staph aureus would be a possibility, but les s likely. We will transition him to vancomycin and Zosyn for now until we have final identification of the organisms and then hopefully be able to transition to an oral regimen for continuation of ther apy after surgical intervention. Atypical infections including mycobacterial infections and fungal i nfection is less likely. Malignancy appears to be less likely as well. If the patient truly has an abscess, then complications including bronchopleural fistula may be a concern.
[2018-07-14] MEDS ORDERED: Fentanyl 250 MCG/5 ML VIAL ONE (06:53)
[2018-07-14] MEDS ORDERED: Midazolam HCl 2 mg/2 ml Vial ONE (07:18)
[2018-07-14] MEDS ORDERED: Albuterol Sulfate 1.25 MG/3 ML NEB ONE (07:26)
[2018-07-14] MEDS ORDERED: Sodium Chloride 0.9% 10 ML ONE (07:59)
[2018-07-14] MEDS ORDERED: Bupivacaine HCl 0.5%/Epinephrine 1:200,000/PF 30 ml Vial ONE (08:25)
[2018-07-14] MEDS ORDERED: Propofol 1,000 MG/100 ML VIAL IV ONE (10:04)
[2018-07-14] MEDS ORDERED: Fentanyl 100 MCG/2 ML VIAL ONE (10:06)
[2018-07-14] MEDS ORDERED: Ondansetron PF 4 MG/2 ML Vial IVP PRN (10:13)
[2018-07-14] MEDS ORDERED: Norepinephrine 8 MG/0.9% NS 250 ML IVPB PRN (10:13)
[2018-07-14] MEDS ORDERED: hydrALAZINE 20 MG/ML VIAL SLOW IVP PRN (10:13)
[2018-07-14] MEDS ORDERED: Phenylephrine 10 MG/NS 250 ML 250 ML IVPB PRN (10:13)
[2018-07-14 10:45] LABS: Actual Bicarbonate (HCO3a) 22.3 mEq/L (22-28); Base Excess (BEa) -3.4 mEq/L (-2.0 to +3.0); CO2 Tension 42.6 mmHg (35.0-45.0); Calcium, Ionized 1.08 mmol/L (1.12-1.30); Carboxyhemoglobin (COHb) 1.2 gm% (0.0-3.0); Hemoglobin (Hb) 11.6 g/dL (14.0-18.0); O2 Tension (PaO2) 86.3 mmHg (> 80.0); Potassium - ABG Lab 2.83 mmol/L (3.70-5.30); pH, Arterial 7.34 (7.35-7.45)
[2018-07-14 10:48] LABS: Puncture Site ALINE
--- NOTE | 2018-07-14 11:20 | OP ---
PREOPERATIVE DIAGNOSIS: Empyema, right chest. POSTOPERATIVE DIAGNOSIS: Empyema, right chest. PROCEDURE: Right subclavian triple lumen CVP and thoracoscopic total lung decortication. SURGEON: Messi Lewis M.D. ANESTHESIA: General. ESTIMATED BLOOD LOSS: Minimal. PROCEDURE: After adequate double lumen endotracheal anesthesia had been obtained, the patient was pl aced in the left lateral decubitus position with padding, prepped and draped. Incision was made in t he posterior axillary line. The chest was entered with a finger and blunt dissection was carried out . Scope was inserted and the lung was fairly adherent. It was gently mobilized with the scope until a second port could be placed more cranially and anteriorly. After this had been done, lung was anuel en down. There was old hemorrhagic fluid in the chest as well as fairly dense fibrinopurulent collec tions. The most significant finding was a posterior diaphragmatic recess perforation of the lower lo be which was probably the initiating event. After taking down all adhesions and removing debris, the area was irrigated with about 5 liters of saline and water. A 32 right angle 28 straight chest tube were then placed and the wounds were closed after Marcaine infiltration.
[2018-07-14] MEDS ORDERED: Lacri-Lube Opth Oint 3.5 GM TUBE EA EYE PRN (11:31)
--- NOTE | 2018-07-14 11:46 | PRG ---
DATE OF SERVICE: 07/14/2018 SERVICE: Pulmonary Medicine. INTERVAL HISTORY: The patient did well after surgery. I am visiting with him in the Postanesthesia Care Unit. He cannot provide any additional elements of the history because he was paralyzed and sedated. Otherwise, the surgical procedure apparently was uneventful. It looks like he had a large necrotizing pneumonia in the base which resulted in this development of empyema. PHYSICAL EXAMINATION: VITAL SIGNS: Afebrile, pulse 99, blood pressure 129/66, respirations 24, saturation 97% on 40% FiO2 and a PEEP of 5. HEENT: Normocephalic, atraumatic. Sclerae are white, conjunctivae pink. Oral mucosa is moist without lesions. LUNGS: Decent air entry. There is no prolonged expiratory phase or wheezing present. No rubs are appreciated. HEART: Normal rate, regular. ABDOMEN: Soft, nontender, nondistended. Bowel sounds are positive. MUSCULOSKELETAL: No cyanosis or clubbing. There is no pitting in the bilateral lower extremities. NEUROLOGIC: Grossly nonfocal. LABORATORY DATA: A pH 7.34, pCO2 of 42, pO2 of 86 on 45% FiO2 at that time. Potassium 2.8. Repeat blood cultures x2, and pleural broth are negative to date. Original blood cultures were growing Staph epidermidis. IMAGING: Chest x-ray demonstrates a right-sided thoracostomy tubes x2. Endotracheal tube is in place and in good position roughly 4 cm above the level of the bita. The infiltrates throughout the right lung are identified. ASSESSMENT: 1. Acute hypoxic respiratory failure. 2. Severe sepsis. 3. Community-acquired pneumonia. 4. Empyema status post decortication, post op day 0. 5. Bacteremia secondary to coag negative Staph, possible. 6. Autism, severe. DISCUSSION: The patient will stay on mechanical ventilation for 24-48 hours. I will plan on taking the tube out around the time of the chest tubes likely going to come out as long as that will occur within the next 2 days. We will keep him down with propofol and fentanyl. We will initiate some tube feeds. Pulmonary Critical Care will continue to follow along in this location. CRITICAL CARE TIME: 30 minutes. PUNEETD
[2018-07-14 11:58] LABS: #Eosinphils 0.1 thou/uL (0.0-0.7); #Lymphocytes 0.5 thou/uL (1.20-3.40); #Monocytes 0.7 thou/uL (0.11-0.59); #Neutrophils 18.3 thou/uL (1.40-6.50); %Eosinophils 0.3 % (0.0-10.0); %Lymphocytes 2.6 % (21.0-51.0); %Monocytes 3.7 % (0.0-10.0); %Neutrophils 93.4 % (42.0-75.0); Hemoglobin 10.6 g/dL (14.0-18.0); Mean Corpuscular HGB CONC 31.6 g/dL (32.0-36.0); Mean Corpuscular Hemoglobin 28.3 pg (27.0-31.0); Mean Corpuscular Volume 89.6 fL (78.0-98.0); Mean Platelet Volume 5.8 fL (7.4-10.4); Platelet Count 365 thou/uL (130-400); RBC Distribution Width 12.9 % (11.5-14.5); Red Blood Cell (RBC) Count 3.73 mill/uL (4.70-6.10); White Blood Cell (WBC) Count 19.6 thou/uL (4.8-10.8)
--- NOTE | 2018-07-14 12:04 | RAD ---
PORTABLE CHEST 1 VIEW: Date: 07/14/18 Time: 1020 hours HISTORY: Respiratory failure, thoracotomy. FINDINGS/IMPRESSION: Comparison made with exam of 07/12/18. Interval placement of an endotracheal tube is seen with tip at the level of the clavicular heads. The re is a right subclavian central line with tip in the projection of the right atrium. Two right-sided chest tubes have been placed in the interim. The loculated right pleural effusion has been drained i n the interim. No pneumothoraces are seen. The heart size is stable. There is increased density in th e right lower lung. POS: C
[2018-07-14 12:16] LABS: Anion Gap 10 mmol/L (10-20); BUN (Urea Nitrogen) 10 mg/dL (8.4-25.7); Calc. Creatinine Clearance 99 mL/min (70-130); Calcium 7.9 mg/dL (7.8-10.44); Carbon Dioxide 22 mmol/L (23-31); Chloride 106 mmol/L (98-107); Estimated GFR-MDRD Greater than 90; Glucose 200 mg/dL (80-115); Sodium 135 mmol/L (136-145)
[2018-07-14] MEDS: Sodium Chloride 0.9% 1,000 ML IV SCH (12:58)
[2018-07-14] MEDS ORDERED: Vecuronium 10 MG VIAL ONE (13:09)
[2018-07-14] MEDS ORDERED: PROPOFOL 200 MG/20 ML VIAL ONE (13:09)
[2018-07-14] MEDS ORDERED: Lidocaine 1% PF 5 ML VIAL ONE (13:09)
[2018-07-14] MEDS ORDERED: Fentanyl BOLUS 250 ML IVPB PRN (13:14)
[2018-07-14] MEDS ORDERED: Propofol BOLUS 1,000 MG/100 ML VIAL IV PRN (13:14)
[2018-07-14] MEDS ORDERED: Lorazepam 2 MG/ML VIAL SLOW IVP PRN (13:14)
[2018-07-14] MEDS ORDERED: Morphine 2 MG/ML SYRINGE SLOW IVP PRN (13:18)
[2018-07-14] MEDS: fentaNYL Citrate/PF 2,000 MCG in Sodium Chloride 0.9% 60 ML IV SCH (14:05)
--- NOTE | 2018-07-14 15:23 | PRG ---
DATE OF SERVICE: 07/14/2018 SUBJECTIVE: The patient is seen and examined at bedside. He was just moved to intensive care unit a fter his thoracotomy and decortication of the right lung by Dr. Lewis. He is sedated and intubated. OBJECTIVE: VITAL SIGNS: His blood pressure based on art line is 97/46, pulse is 89, pulse oximeter is 95%. Exa mination is limited. LUNGS: He has chest tubes on the right side, breath sounds diminished. HEART: S1, S2 normal, no S3, no S4. ABDOMEN: Soft, nondistended. EXTREMITIES: No clubbing, cyanosis, or edema. NEUROLOGIC: Postponed since he is sedated. LABORATORY DATA: Showed white count of 19.6, hemoglobin 10.6, hematocrit 33.4, platelet count is 365 ,000. PH of arterial blood showed 7.34, pCO2 of 42.6, pO2 of 86.3, acid base excess -3.4. Sodium 13 5, potassium 3.0, chloride 106, CO2 of 22, BUN 10, creatinine 0.65. Glycemia is ranging from 150-278 , calcium 7.9. Microbiology, Staph epidermidis in both blood cultures as before. On last two sets, one set of blood culture, no growth x2. Acid fast bacilli on pleural fluid final negative. Acid fas t bacilli culture pending. Urine culture negative. Echocardiogram showed technically inadequate exa m. Consider a repeat exam. Ejection fraction is visually estimated at 65-70%, left ventricular size is normal. Left atrium is normal. Mitral valve was not well visualized. Aortic valve leaflets wer e not well visualized, mild aortic regurgitation is noted. IMPRESSION: 1. Empyema, status post thoracoscopy and decortication by Dr. Lewis today. The patient was just mov ed to the unit, where he was intubated and sedated. 2. Pneumonia. 3. Bacteremia with coagulase-negative Staphylococcus epidermidis, 2/2 cultures. 4. Autism. 5. Diabetes mellitus type 2, relatively well controlled. 6. History of colon cancer, status post partial colectomy. 7. Kidney stone localized in the right renal collecting system measuring up to 8 mm. 8. Hyponatremia and hypochloremia, improved. 9. Hypokalemia postoperatively, supplementation. 10. Hypertension. 11. Nonverbal. PLAN: He will stay in Intensive Care Unit for the next 24-48 hours. We would like the tubes to come out before he is extubated and sedated. The sedation is stopped because his mental condition is goi ng to be a problem. He was he could put his hands on. We will continue antibiotic which is cl indamycin and levofloxacin. We will use sliding scale for Humulin lispro and the rest of management per Critical Care/Pulmonary and cardiovascular surgeon.
[2018-07-14] MEDS: HumaLOG 300 UNITS/3 ML VIAL SC PRN (16:20)
[2018-07-14] MEDS: Propofol 1,000 MG/100 ML VIAL IV PRN (16:50)
[2018-07-14] MEDS: Enoxaparin Sodium 40 MG/0.4 ML SYRINGE SC SCH (19:52)
[2018-07-15] MEDS: Sodium Chloride 0.9% 1,000 ML IV SCH ×2 (02:45→13:58)
[2018-07-15 04:31] LABS: #Eosinphils 0.1 thou/uL (0.0-0.7); #Lymphocytes 0.7 thou/uL (1.20-3.40); #Neutrophils 14.2 thou/uL (1.40-6.50); %Basophils 0.1 % (0.0-1.0); %Eosinophils 0.4 % (0.0-10.0); %Lymphocytes 4.4 % (21.0-51.0); %Monocytes 6.1 % (0.0-10.0); %Neutrophils 89.1 % (42.0-75.0); Hemoglobin 9.3 g/dL (14.0-18.0); Mean Corpuscular Hemoglobin 29.4 pg (27.0-31.0); Mean Corpuscular Volume 89.4 fL (78.0-98.0); Platelet Count 349 thou/uL (130-400); RBC Distribution Width 13.5 % (11.5-14.5); Red Blood Cell (RBC) Count 3.15 mill/uL (4.70-6.10); White Blood Cell (WBC) Count 15.9 thou/uL (4.8-10.8)
[2018-07-15] MEDS: HumaLOG 300 UNITS/3 ML VIAL SC PRN (04:47)
[2018-07-15] MEDS: Clindamycin/D5W 600 MG in Premix Bag 1 BAG IVPB SCH ×3 (05:02→17:59)
[2018-07-15 05:06] LABS: Anion Gap 5 mmol/L (10-20); BUN (Urea Nitrogen) 15 mg/dL (8.4-25.7); Calc. Creatinine Clearance 108 mL/min (70-130); Calcium 8.1 mg/dL (7.8-10.44); Carbon Dioxide 27 mmol/L (23-31); Chloride 108 mmol/L (98-107); Estimated GFR-MDRD Greater than 90; Glucose 157 mg/dL (80-115); Magnesium 1.5 mg/dL (1.6-2.6); Phosphorus 2.4 mg/dL (2.3-4.7); Potassium 4.1 mmol/L (3.5-5.1); Sodium 136 mmol/L (136-145)
[2018-07-15] MEDS: Ascorbic Acid 500 mg Chewable Tablet PO SCH (07:48)
[2018-07-15] MEDS: Fluticasone Propionate Nasal Spray 16 gm Bottle NASAL SCH (07:49)
[2018-07-15] MEDS: Cholecalciferol (Vitamin D3) 400 UNITS TAB PO SCH (07:49)
[2018-07-15] MEDS: Multivit, Therapeutic 1 TAB PO SCH (07:49)
[2018-07-15] MEDS ORDERED: Magnesium 2 GM/50 ML 2 GM in Premix Bag 1 BAG IVPB SCH ×2 (08:30→12:15)
--- NOTE | 2018-07-15 09:34 | RAD ---
CHEST 1 VIEW: Date: 07/15/18 HISTORY: Thoracotomy. COMPARISON: Radiograph from prior day. FINDINGS: Right thoracostomy tubes are similar. Layering right effusion. Central venous catheter tip right atri um. Endotracheal tube tip at level of clavicles. Enteric tube tip at gastric fundus. Small left effusion. IMPRESSION: No significant change given the patient's rightward rotation. POS: [facility]
--- NOTE | 2018-07-15 12:35 | PRG ---
DATE OF SERVICE: 07/15/2018 SERVICE: Pulmonary Medicine. INTERVAL HISTORY: The patient is doing fine from a respiratory standpoint. He remains on mechanical ventilation. He is a touch of propofol and fentanyl in order to take the edge off. He is actually awake, cool, calm and collected with this. He does not appear to be significantly agitated. He is n ot in any discomfort so far as I can tell with these medications. Nursing reports no overnight event s. PHYSICAL EXAMINATION: VITAL SIGNS: Afebrile with a T-max of 100.7, pulse 100, blood pressure 122/67, respirations 19, satu ration 100% on 23% FiO2 and a PEEP of 5. GENERAL: The patient is awake and alert. No apparent distress. LUNGS: Excellent air entry. Rhonchi are present on the right. No prolonged expiratory phase, wheez ing, otherwise appreciated. HEART: Normal rate, regular. ABDOMEN: Soft, nontender, nondistended. Bowel sounds are positive. MUSCULOSKELETAL: No cyanosis or clubbing. There is no pitting in the bilateral lower extremities. NEUROLOGIC: Grossly nonfocal. LABORATORY DATA: WBC 16.0, hemoglobin 9.3, platelets 349,000. Basic metabolic profile is unremarkab le. His magnesium is 1.5. Phosphorus 2.4. Blood cultures are growing Staph epidermidis in 2/2. Re peat blood cultures x2 are unremarkable to date. AFB smear and culture is negative. Pleural broth c ulture is negative. IMAGING: Echocardiogram demonstrates an adequate study for evaluation of valvular structures. Chest x-ray demonstrates thoracostomy drains are present in the right lung. There is good expansion there . Endotracheal tube is 4 cm above the level of the bita. A subclavian central venous catheter is present on the right and terminates in the right atrium. There is some volume loss in the right lung , possibly consistent with right upper lobe atelectasis. ASSESSMENT: 1. Acute hypoxic respiratory failure, resolving. 2. Severe sepsis. 3. Community-acquired pneumonia. 4. Empyema. 5. Bacteremia secondary to coag negative staph. 6. Autism, severe. DISCUSSION AND PLAN: We will replace the magnesium. We will coordinate removal of the endotracheal tube with removal of the chest tubes. From my perspective, the only reason we are keeping him on mec hanical ventilation is because he really would not tolerate having chest tubes without significant se dation. As such, when Cardiothoracic Surgery is ready to pull the chest tubes, I will be ready to pu t him on a spontaneous breathing trial and extubate him either prior to or immediately following the chest tube extraction. CRITICAL CARE TIME: 30 minutes.
[2018-07-15] MEDS: Propofol 1,000 MG/100 ML VIAL IV PRN (13:58)
--- NOTE | 2018-07-15 19:30 | PDOC.PN ---
- Subjective Encounter Start Date: 07/15/18 Encounter Start Time: 11:00 -: non-verbal Patient seen and examined for Sepsis. On [facility] Vent. No overnight events - Objective MAR Reviewed: Yes Vital Signs & Weight: Vital Signs (12 hours) Temp Pulse Resp BP Pulse Ox 07/15/18 18:22 109 H 163/93 H 07/15/18 18:00 21 H 07/15/18 16:00 100.6 F H 23 H 07/15/18 15:27 96 141/81 H 07/15/18 14:00 23 H 07/15/18 13:00 98.2 F 07/15/18 12:00 24 H 07/15/18 10:58 102 H 122/67 07/15/18 10:00 23 H 07/15/18 08:09 95 114/56 L 95 07/15/18 08:00 98.6 F 25 H 94 L Weight Admit Weight 144 lb 6 oz Weight 156 lb 8.451 oz Most Recent Monitor Data Heart Rate from ECG 103 NIBP 150/96 NIBP BP-Mean 114 Respiration from ECG 9 SpO2 98 I&O: 07/14/18 07/15/18 07/16/18 06:59 06:59 06:59 Intake Total 2057.4 1189.4 Output Total 920 570 Balance 1137.4 619.4 Result Diagrams: 07/15/18 04:20 07/15/18 04:20 Additional Labs: Accuchecks 07/15/18 07/15/18 07/15/18 16:10 10:36 04:22 POC Glucose 137 H 141 H 153 H 07/14/18 19:55 POC Glucose 141 H Radiology Reviewed by me: Yes (CXR - No new changes) EKG Reviewed by me: Yes (Tele SR) Phys Exam - Physical Examination Constitutional: NAD On Vent Respiratory: no wheezing Coarse BS B/L, Chest tube + Cardiovascular: RRR, no rub Gastrointestinal: soft, positive bowel sounds Musculoskeletal: no edema Dx/Plan - Plan DVT proph w/SCDs 1. Sepsis with acute organ dysfunction due to CA Pneumonia ?Staph with Empyema 2. Acute hypoxic respiratory failure due to #1 3. Electrolyte abn - Hyponatremia/Hypokalemia/Hypomagnesemia 4. Staph Epi bacteremia 5. HTN/DM2/Other issues per previous notes PLAN: Replace Electrolytes Cont current Atbx Cont Vent support Cont current meds as below Cont supportive care Review of Systems - Review of Systems Other: Cannot obtain due to sedation - Medications/Allergies Allergies/Adverse Reactions: Allergies Allergy/AdvReac Type Severity Reaction Status Date / Time Penicillins Allergy Verified 06/11/18 21:46 Medications: Current Medications Albuterol/Ipratropium (Duoneb) 3 ml NEB [id number] PRN PRN Reason: Wheezing Dextrose/Water (Dextrose 50%) 25 gm SLOW IVP PRN PRN PRN Reason: Hypoglycemia Enoxaparin Sodium (Lovenox) 40 mg SC 2100 [facility] Last Admin: 07/14/18 19:52 Dose: 40 mg Glucagon (Glucagon) 1 mg IM PRN PRN PRN Reason: Hypoglycemia Hydralazine HCl (Apresoline) 10 mg SLOW IVP Q6H PRN PRN Reason: To Keep SBP < 140 mmHG Dextrose/Water (D5w) 1,000 mls @ 0 mls/hr IV .Q0M PRN PRN Reason: Hypoglycemia Clindamycin Phosphate/Dextrose (600 mg/ Device) 50 mls @ 100 mls/hr IVPB Q6HR [facility] Last Admin: 07/15/18 17:59 Dose: 50 mls Levofloxacin 750 mg/ Device 150 mls @ 100 mls/hr IVPB 1800 [facility] Last Admin: 07/15/18 17:58 Dose: 150 mls Sodium Chloride (Normal Saline 0.9%) 1,000 mls @ 50 mls/hr IV .Q20H [facility] Last Admin: 07/15/18 13:58 Dose: 1,000 mls Norepinephrine Bitartrate (Levophed) 250 mls @ 0 mls/hr IVPB PRN PRN; Protocol PRN Reason: To Keep SBP > 90 mmHG Phenylephrine HCl (Avelino-Synephrine) 250 mls @ 0 mls/hr IVPB PRN PRN; Protocol PRN Reason: To Keep SBP > 90 mmHG Fentanyl Citrate 2,000 mcg/ (Sodium Chloride) 100 mls @ 0 mls/hr IV INF [facility]; Protocol Stop: 08/13/18 13:14 Last Admin: 07/14/18 14:05 Dose: 100 mls Fentanyl Citrate (Fentanyl Bolus) 250 mls @ 0 mls/hr IVPB PRN PRN PRN Reason: Breakthrough pain/agitation Stop: 08/13/18 13:14 Insulin Human Lispro (Humalog) 0 units SC .MILD SLIDING SCALE PRN PRN Reason: Mild Correctional Scale Last Admin: 07/15/18 04:47 Dose: 2 unit Lorazepam (Ativan) 2 mg SLOW IVP Q1H PRN PRN Reason: Breakthrough agitation Stop: 08/13/18 13:14 Mineral Oil/White Petrolatum (Lacri-Lube Ointment) 0 gm EA EYE PRN PRN PRN Reason: Dry Eyes Morphine Sulfate (Morphine) 2 mg SLOW IVP Q1H PRN PRN Reason: BREAKTHROUGH PAIN/AGITATION Ondansetron HCl (Zofran) 4 mg IVP Q6H PRN PRN Reason: Nausea/Vomiting Propofol (Diprivan) 1,000 mg IV INF PRN; Protocol PRN Reason: TO ACHIEVE GOAL RASS Stop: 08/13/18 13:14 Last Admin: 07/15/18 13:58 Dose: 1,000 mg Propofol (Diprivan Bolus) 20 mg IV Q5MIN PRN PRN Reason: BREAKTHROUGH AGITATION Stop: 08/13/18 13:14
[2018-07-15] MEDS: Enoxaparin Sodium 40 MG/0.4 ML SYRINGE SC SCH (20:58)
[2018-07-15] MEDS: MEROPENEM 1 GM/50 ML 1 GM in Premix Bag 1 BAG IVPB SCH (23:40)
[2018-07-16] MEDS: fentaNYL Citrate/PF 2,000 MCG in Sodium Chloride 0.9% 60 ML IV SCH (03:41)
[2018-07-16 04:59] LABS: ALT (SGPT) 9 U/L (8-55); AST (SGOT) 17 U/L (5-34); Albumin 2.1 g/dL (3.4-4.8); Alkaline Phosphatase 67 U/L (40-150); Anion Gap 8 mmol/L (10-20); BUN (Urea Nitrogen) 10 mg/dL (8.4-25.7); Bilirubin, Total 0.4 mg/dL (0.2-1.2); Calc. Creatinine Clearance 130 mL/min (70-130); Carbon Dioxide 27 mmol/L (23-31); Chloride 104 mmol/L (98-107); Estimated GFR-MDRD Greater than 90; Globulin 3.3 g/dL (2.4-3.5); Glucose 163 mg/dL (80-115); Magnesium 1.3 mg/dL (1.6-2.6); Potassium 3.1 mmol/L (3.5-5.1); Protein, Total 5.4 g/dL (5.8-8.1); Sodium 136 mmol/L (136-145)
[2018-07-16] MEDS: MEROPENEM 1 GM/50 ML 1 GM in Premix Bag 1 BAG IVPB SCH ×3 (05:55→21:32)
[2018-07-16 06:47] LABS: Hemoglobin 9.2 g/dL (14.0-18.0); MDiff Complete? YES; Mean Corpuscular HGB CONC 31.7 g/dL (32.0-36.0); Mean Corpuscular Hemoglobin 28.2 pg (27.0-31.0); Mean Corpuscular Volume 88.9 fL (78.0-98.0); Mean Platelet Volume 6.1 fL (7.4-10.4); Platelet Count 349 thou/uL (130-400); RBC Distribution Width 13.3 % (11.5-14.5); Red Blood Cell (RBC) Count 3.26 mill/uL (4.70-6.10); White Blood Cell (WBC) Count 18.3 thou/uL (4.8-10.8)
[2018-07-16 06:48] LABS: Band 18 % (5-11); Eosinophils 1 % (0-10); Lymphocytes 3 % (21-51); Monocytes 3 % (0-10); Neutrophil 75 % (42-75)
[2018-07-16] MEDS ORDERED: Magnesium Sulfate 4 GM in Sodium Chloride 0.9% 250 ML 250 ML IVPB SCH (08:30)
[2018-07-16] MEDS: Propofol 1,000 MG/100 ML VIAL IV PRN (08:44)
--- NOTE | 2018-07-16 09:19 | RAD ---
CHEST 1 VIEW: Date: 07/16/18 HISTORY: Thoracotomy. COMPARISON: Radiograph from prior day. FINDINGS: Endotracheal tube tip in good position. Enteric tube tip gastric fundus. There are two right thoracos ck tubes with the craniad most thoracostomy tube side port just within the hemithorax. Layering cir cumferential effusion is similar. Developing left basilar air space opacity. IMPRESSION: Developing left basilar air space opacity, which may reflect infection, aspiration, or atelectasis. POS: NOE
[2018-07-16] MEDS: NS 0.9% w/ 40 MEQ KCL 1,000 ML IV SCH (09:41)
--- NOTE | 2018-07-16 11:24 | PRG ---
DATE OF SERVICE: 07/16/2018 SERVICE: Pulmonary Medicine. INTERVAL HISTORY: The chest tubes have put out absolutely nothing over the last 24 hours. There has been no interval change to Mr. Lares's condition. He is on pressure support ventilation. He was req uiring a minimal amount of sedation. Otherwise, there has been no interval change to his condition. Nursing reports no overnight events. PHYSICAL EXAMINATION: VITAL SIGNS: Afebrile, with a T-max of 100.6. Pulse 110, blood pressure 121/70, respirations 12, sa turation 99% on 23% FiO2 and a PEEP of 5. GENERAL: The patient is awake and alert, no apparent distress. LUNGS: Excellent air entry. Rhonchi are present. There is no prolonged expiratory phase or wheezin g present. HEART: Normal rate, regular. ABDOMEN: Soft, nontender, nondistended. Bowel sounds positive. MUSCULOSKELETAL: No cyanosis or clubbing. There is no pitting in the bilateral lower extremities. NEUROLOGIC: Grossly nonfocal. LABORATORY DATA: WBC 18.3, hemoglobin 9.2, platelets 349,000. Band count has increased to 18%. INR 1.8. Creatinine 0.54. Potassium 3.1, magnesium 1.3. Liver function studies are otherwise unremark able. Culture results remain negative to date other than original Staph epidermidis growing in 2/2 b lood cultures. IMAGING: Chest x-ray demonstrates no significant change. The right side thoracostomy drains are in good position. Left basilar airspace disease is now present, likely representing atelectasis. ASSESSMENT: 1. Acute hypoxic respiratory failure, resolving. 2. Severe sepsis. 3. Community-acquired pneumonia. 4. Empyema. 5. Bacteremia secondary to coagulase-negative Staphylococci. 6. Autism, severe. DISCUSSION AND PLAN: I will once again replace magnesium and potassium. We will coordinate removal of the endotracheal tube with removal of his chest tubes. They have put absolutely nothing out over the last 24 hours. Pulmonary Critical Care will continue to follow along. CRITICAL CARE TIME: 30 minutes.
[2018-07-16] MEDS: HumaLOG 300 UNITS/3 ML VIAL SC PRN (16:29)
[2018-07-16] MEDS: Enoxaparin Sodium 40 MG/0.4 ML SYRINGE SC SCH (20:07)
--- NOTE | 2018-07-16 22:38 | PDOC.PN ---
- Subjective Encounter Start Date: 07/16/18 Encounter Start Time: 10:30 -: non-verbal Patient seen and examined for Sepsis[facility] No overnight events - Objective MAR Reviewed: Yes Vital Signs & Weight: Vital Signs (12 hours) Temp Pulse Resp BP Pulse Ox 07/16/18 22:19 97 07/16/18 22:00 19 07/16/18 20:00 98.4 F 17 99 07/16/18 19:23 96 07/16/18 18:00 24 H 07/16/18 16:17 103 H 174/94 H 07/16/18 16:00 98.2 F 25 H 07/16/18 14:00 19 07/16/18 12:09 103 H 118/71 07/16/18 12:00 98.5 F 27 H Weight Admit Weight 144 lb 6 oz Weight 158 lb 11.725 oz Most Recent Monitor Data Heart Rate from ECG 95 NIBP 152/104 NIBP BP-Mean 120 Respiration from ECG 16 SpO2 94 I&O: 07/15/18 07/16/18 07/17/18 06:59 06:59 06:59 Intake Total 2057.4 2909.0 1872.3 Output Total 920 1315 960 Balance 1137.4 1594.0 912.3 Result Diagrams: 07/16/18 04:25 07/16/18 04:25 Additional Labs: Accuchecks 07/16/18 07/16/18 07/16/18 16:26 09:47 04:21 POC Glucose 162 H 157 H 172 H 07/15/18 23:33 POC Glucose 128 H Radiology Reviewed by me: Yes (CXR - Left basilar opacity) EKG Reviewed by me: Yes (Tele SR) Phys Exam - Physical Examination Constitutional: NAD Respiratory: no wheezing, no rhonchi Coarse BS B/L Cardiovascular: RRR, no rub Gastrointestinal: soft, positive bowel sounds Musculoskeletal: no edema Dx/Plan - Plan DVT proph w/SCDs 1. Sepsis with acute organ dysfunction due to CA Pneumonia ?Staph with Empyema 2. Acute hypoxic respiratory failure due to #1 3. Electrolyte abn - Hyponatremia/Hypokalemia/Hypomagnesemia 4. Staph Epi bacteremia 5. HTN/DM2/Other issues per previous notes PLAN: Cont current Atbx Cont Vent support Cont current meds as below Cont supportive care Replace Electrolytes AM labs Review of Systems - Review of Systems Other: Cannot obtain due to current mentation - Medications/Allergies Allergies/Adverse Reactions: Allergies Allergy/AdvReac Type Severity Reaction Status Date / Time Penicillins Allergy Verified 06/11/18 21:46 Medications: Current Medications Albuterol/Ipratropium (Duoneb) 3 ml NEB [id number] PRN PRN Reason: Wheezing Dextrose/Water (Dextrose 50%) 25 gm SLOW IVP PRN PRN PRN Reason: Hypoglycemia Enoxaparin Sodium (Lovenox) 40 mg SC 2100 [facility] Last Admin: 07/16/18 20:07 Dose: 40 mg Glucagon (Glucagon) 1 mg IM PRN PRN PRN Reason: Hypoglycemia Hydralazine HCl (Apresoline) 10 mg SLOW IVP Q6H PRN PRN Reason: To Keep SBP < 140 mmHG Dextrose/Water (D5w) 1,000 mls @ 0 mls/hr IV .Q0M PRN PRN Reason: Hypoglycemia Norepinephrine Bitartrate (Levophed) 250 mls @ 0 mls/hr IVPB PRN PRN; Protocol PRN Reason: To Keep SBP > 90 mmHG Phenylephrine HCl (Avelino-Synephrine) 250 mls @ 0 mls/hr IVPB PRN PRN; Protocol PRN Reason: To Keep SBP > 90 mmHG Fentanyl Citrate 2,000 mcg/ (Sodium Chloride) 100 mls @ 0 mls/hr IV INF [facility]; Protocol Stop: 08/13/18 13:14 Last Admin: 07/16/18 03:41 Dose: 100 mls Fentanyl Citrate (Fentanyl Bolus) 250 mls @ 0 mls/hr IVPB PRN PRN PRN Reason: Breakthrough pain/agitation Stop: 08/13/18 13:14 Meropenem 1 gm/ Device 50 mls @ 100 mls/hr IVPB Q8HR [facility] Last Admin: 07/16/18 21:32 Dose: 50 mls Potassium Chloride/Sodium Chloride (Ns 0.9% W/ 40 Meq Kcl) 1,000 mls @ 50 mls/ hr IV .Q20H [facility] Last Admin: 07/16/18 09:41 Dose: 1,000 mls Insulin Human Lispro (Humalog) 0 units SC .MILD SLIDING SCALE PRN PRN Reason: Mild Correctional Scale Last Admin: 07/16/18 16:29 Dose: 2 unit Lorazepam (Ativan) 2 mg SLOW IVP Q1H PRN PRN Reason: Breakthrough agitation Stop: 08/13/18 13:14 Mineral Oil/White Petrolatum (Lacri-Lube Ointment) 0 gm EA EYE PRN PRN PRN Reason: Dry Eyes Morphine Sulfate (Morphine) 2 mg SLOW IVP Q1H PRN PRN Reason: BREAKTHROUGH PAIN/AGITATION Ondansetron HCl (Zofran) 4 mg IVP Q6H PRN PRN Reason: Nausea/Vomiting Propofol (Diprivan) 1,000 mg IV INF PRN; Protocol PRN Reason: TO ACHIEVE GOAL RASS Stop: 08/13/18 13:14 Last Admin: 07/16/18 08:44 Dose: 1,000 mg Propofol (Diprivan Bolus) 20 mg IV Q5MIN PRN PRN Reason: BREAKTHROUGH AGITATION Stop: 08/13/18 13:14
[2018-07-17] MEDS: Propofol 1,000 MG/100 ML VIAL IV PRN (01:07)
[2018-07-17 04:14] LABS: #Eosinphils 0.1 thou/uL (0.0-0.7); #Lymphocytes 0.9 thou/uL (1.20-3.40); #Monocytes 1.2 thou/uL (0.11-0.59); #Neutrophils 13.1 thou/uL (1.40-6.50); %Basophils 0.1 % (0.0-1.0); %Eosinophils 0.4 % (0.0-10.0); %Lymphocytes 5.7 % (21.0-51.0); %Monocytes 7.8 % (0.0-10.0); %Neutrophils 86.1 % (42.0-75.0); Hemoglobin 8.4 g/dL (14.0-18.0); Mean Corpuscular HGB CONC 35.6 g/dL (32.0-36.0); Mean Corpuscular Volume 89.9 fL (78.0-98.0); Mean Platelet Volume 6.2 fL (7.4-10.4); Platelet Count 345 thou/uL (130-400); RBC Distribution Width 14.3 % (11.5-14.5); Red Blood Cell (RBC) Count 2.62 mill/uL (4.70-6.10); White Blood Cell (WBC) Count 15.3 thou/uL (4.8-10.8)
[2018-07-17 04:31] LABS: Anion Gap 6 mmol/L (10-20); BUN (Urea Nitrogen) 13 mg/dL (8.4-25.7); Calc. Creatinine Clearance 151 mL/min (70-130); Calcium 7.9 mg/dL (7.8-10.44); Carbon Dioxide 30 mmol/L (23-31); Chloride 106 mmol/L (98-107); Estimated GFR-MDRD Greater than 90; Glucose 132 mg/dL (80-115); Magnesium 1.7 mg/dL (1.6-2.6); Phosphorus 2.1 mg/dL (2.3-4.7); Potassium 3.9 mmol/L (3.5-5.1); Sodium 138 mmol/L (136-145)
[2018-07-17] MEDS: MEROPENEM 1 GM/50 ML 1 GM in Premix Bag 1 BAG IVPB SCH ×3 (05:12→21:36)
[2018-07-17] MEDS: NS 0.9% w/ 40 MEQ KCL 1,000 ML IV SCH (08:27)
--- NOTE | 2018-07-17 08:43 | RAD ---
JIMBO KANGW OF THE CHEST: COMPARISON: 07/16/2018. HISTORY: Status post thoracotomy. FINDINGS: A single view of the chest shows an enlarged but stable cardiomediastinal silhouette. The lines and tubes are unchanged in position. Multifocal airspace opacities are seen in the lungs which may repre sent infiltrates. No change has occurred compared to the prior exam. IMPRESSION: Stable exam. POS: TPC
[2018-07-17] MEDS: HumaLOG 300 UNITS/3 ML VIAL SC PRN (10:57)
[2018-07-17] MEDS ORDERED: Morphine 2 MG/ML SYRINGE SLOW IVP PRN (12:34)
--- NOTE | 2018-07-17 12:44 | PRG ---
DATE OF SERVICE: 07/17/2018 SERVICE: Pulmonary Medicine INTERVAL HISTORY: The patient is doing really well from a respiratory standpoint. He is breathing comfortably. He has no complaints of fevers, chills, nausea or vomiting. He is on mechanical ventilation, still. There were no overnight events. Dr. Lewis is planning on taking the chest tubes out today. PHYSICAL EXAMINATION: VITAL SIGNS: Afebrile currently. Pulse 119, blood pressure 152/94, respirations 25, saturation 90% on 23% FiO2 and a PEEP of 5. GENERAL: The patient is awake and alert, in no apparent distress. LUNGS: Decent air entry. There are some rhonchi present. No crackles or wheezing appreciated. HEART: Normal rate, regular. ABDOMEN: Soft, nontender, nondistended. Bowel sounds are positive. MUSCULOSKELETAL: No cyanosis or clubbing. There is no pitting in the bilateral lower extremities. NEUROLOGIC: Grossly nonfocal. LABORATORY DATA: WBC 15.3, hemoglobin 8.4, platelets 345,000. Basic metabolic profile is unremarkable. Phosphorus is 2.1, magnesium 1.7. Culture results remain negative except for original Staph epidermidis growing in 2/2 blood cultures. Repeat blood cultures are negative to date. IMAGING: Chest x-ray demonstrates stable chest with right-sided thoracostomy drains in good position. Multifocal airspace disease is stable. ASSESSMENT: 1. Acute hypoxic respiratory failure, resolved. 2. Severe sepsis. 3. Community-acquired pneumonia. 4. Empyema. 5. Bacteremia secondary to coag negative staph. 6. Autism, severe. DISCUSSION AND PLAN: I will put the patient on spontaneous breathing trial. We will coordinate removing the endotracheal tube with Cardiothoracic Surgery. Hopefully, the chest tube will come out without any issue. Phosphorus and magnesium will be replaced today. Pulmonary Critical Care will continue to follow along while the patient remains in house. He will certainly remain in the ICU for 24 hours. I will give him a single dose of Lasix today. Critical care time: 30 minutes. MTDD
[2018-07-17] MEDS ORDERED: Furosemide 20 MG/2 ML VIAL SLOW IVP SCH (12:45)
[2018-07-17] MEDS ORDERED: Magnesium 2 GM/50 ML 2 GM in Premix Bag 1 BAG IVPB SCH (13:00)
[2018-07-17] MEDS ORDERED: Potassium Phosphate 12 MMOL in Sodium Chloride 0.9% 100 ML IVPB SCH (13:15)
[2018-07-17] MEDS ORDERED: Propofol 1,000 MG/100 ML VIAL IV PRN (18:25)
[2018-07-17] MEDS ORDERED: Sodium Chloride 0.9% 500 ML IV SCH (18:30)
--- NOTE | 2018-07-17 18:59 | PRG ---
DATE OF SERVICE: 07/17/2018 SUBJECTIVE: Mr. Lraes is intubated still. Extubation today was postponed because of the presence of large amount of secretions in airways. OBJECTIVE: GENERAL: He is awake, does not appear in distress. VITAL SIGNS: With normal temperature, blood pressure 120/80, pulse 108, respirations 18. LUNGS: Symmetric air entry. There is decreased lungs sounds on the right side. Still with a chest tube in the right lateral aspect with output down to 20 only for the past 24 hours. HEART: S1, S2 regular rate. ABDOMEN: Soft. LABORATORY DATA: White cell count down to 15,000, hemoglobin 8.4, platelets 345, creatinine 0.47. C ulture is still negative from the pleural fluid. ASSESSMENT AND DISCUSSION: Severe autism and swallowing dysfunction with aspiration episodes and inf lammatory process in right chest wall with evidence of empyema with negative cultures thus far. Checo adames are likely microaerophilic Streptococci. Continue meropenem for a protracted period of time. Eventual transition to oral beta lactam to be considered such as Augmentin.
[2018-07-17] MEDS: Enoxaparin Sodium 40 MG/0.4 ML SYRINGE SC SCH (21:09)
--- NOTE | 2018-07-17 23:39 | PDOC.PN ---
- Subjective Encounter Start Date: 07/17/18 Encounter Start Time: 14:00 Patient seen and examined for resp failure/Empyema. No overnight events - Objective MAR Reviewed: Yes Vital Signs & Weight: Vital Signs (12 hours) Temp Pulse Pulse Pulse Resp BP BP 07/17/18 22:06 102 H 133/82 07/17/18 22:00 15 07/17/18 20:00 98.6 F 16 07/17/18 18:27 90 104/65 07/17/18 18:00 15 07/17/18 16:00 98.7 F 24 H 07/17/18 15:25 110 H 116 H 128/81 07/17/18 14:48 108 H 129/67 07/17/18 14:00 18 07/17/18 12:00 30 H BP Pulse Ox 07/17/18 22:06 07/17/18 22:00 07/17/18 20:00 100 07/17/18 18:27 07/17/18 18:00 07/17/18 16:00 07/17/18 15:25 121/86 07/17/18 14:48 07/17/18 14:00 07/17/18 12:00 Weight Admit Weight 144 lb 6 oz Weight 158 lb 1.143 oz Most Recent Monitor Data Heart Rate from ECG 84 NIBP 100/64 NIBP BP-Mean 76 Respiration from ECG 19 SpO2 100 I&O: 07/16/18 07/17/18 07/18/18 06:59 06:59 06:59 Intake Total 2909.0 3244.1 1488.9 Output Total 1315 1380 1935 Balance 1594.0 1864.1 -446.1 Result Diagrams: 07/17/18 03:40 07/17/18 03:30 Additional Labs: Accuchecks 07/17/18 07/17/18 10:42 04:21 POC Glucose 157 H 132 H Radiology Reviewed by me: Yes (CXR - no new changes) EKG Reviewed by me: Yes (Tele SR) Phys Exam - Physical Examination Constitutional: NAD (on Vent) Respiratory: no wheezing Bibasilar rales with scat rhonchi Cardiovascular: RRR, no rub Gastrointestinal: soft, positive bowel sounds Dx/Plan - Plan DVT proph w/lovenox, DVT proph w/SCDs 1. Sepsis with acute organ dysfunction due to [place] Pneumonia ?Staph with Empyema 2. Acute hypoxic respiratory failure due to #1 3. Electrolyte abn - Hyponatremia/Hypokalemia/Hypomagnesemia 4. Staph Epi bacteremia 5. HTN/DM2/Other issues per previous notes PLAN: Cont Meropenem with Vent support Cont current meds as below Cont supportive care Replace Electrolytes AM labs Review of Systems - Review of Systems Other: Cannot obtain due to sedation - Medications/Allergies Allergies/Adverse Reactions: Allergies Allergy/AdvReac Type Severity Reaction Status Date / Time Penicillins Allergy Verified 06/11/18 21:46 Medications: Current Medications Albuterol/Ipratropium (Duoneb) 3 ml NEB [id number] PRN PRN Reason: Wheezing Dextrose/Water (Dextrose 50%) 25 gm SLOW IVP PRN PRN PRN Reason: Hypoglycemia Enoxaparin Sodium (Lovenox) 40 mg SC 2100 [facility] Last Admin: 07/17/18 21:09 Dose: 40 mg Furosemide (Lasix) 20 mg SLOW IVP 0600 [facility] Glucagon (Glucagon) 1 mg IM PRN PRN PRN Reason: Hypoglycemia Hydralazine HCl (Apresoline) 10 mg SLOW IVP Q6H PRN PRN Reason: To Keep SBP < 140 mmHG Dextrose/Water (D5w) 1,000 mls @ 0 mls/hr IV .Q0M PRN PRN Reason: Hypoglycemia Meropenem 1 gm/ Device 50 mls @ 100 mls/hr IVPB Q8HR [facility] Last Admin: 07/17/18 21:36 Dose: 50 mls Sodium Chloride (Normal Saline 0.9%) 500 mls @ 0 mls/hr IV .Q0M [facility] Insulin Human Lispro (Humalog) 0 units SC .MILD SLIDING SCALE PRN PRN Reason: Mild Correctional Scale Last Admin: 07/17/18 10:57 Dose: 2 unit Miscellaneous Medication (Phos-Nak) 1 pkt PER TUBE TID [facility] Last Admin: 07/17/18 21:10 Dose: 1 pkt Morphine Sulfate (Morphine) 2 mg SLOW IVP Q4H PRN PRN Reason: Pain Ondansetron HCl (Zofran) 4 mg IVP Q6H PRN PRN Reason: Nausea/Vomiting Propofol (Diprivan) 1,000 mg IV INF PRN; Protocol PRN Reason: TO ACHIEVE GOAL RASS Stop: 08/16/18 18:25
[2018-07-18 04:30] LABS: Anion Gap 10 mmol/L (10-20); BUN (Urea Nitrogen) 14 mg/dL (8.4-25.7); Calc. Creatinine Clearance 139 mL/min (70-130); Calcium 8.5 mg/dL (7.8-10.44); Carbon Dioxide 30 mmol/L (23-31); Chloride 102 mmol/L (98-107); Estimated GFR-MDRD Greater than 90; Glucose 142 mg/dL (80-115); Potassium 3.7 mmol/L (3.5-5.1); Sodium 138 mmol/L (136-145)
[2018-07-18] MEDS: Furosemide 20 MG/2 ML VIAL SLOW IVP SCH (05:26)
[2018-07-18] MEDS: MEROPENEM 1 GM/50 ML 1 GM in Premix Bag 1 BAG IVPB SCH ×3 (05:26→21:00)
[2018-07-18 05:43] LABS: Magnesium 1.6 mg/dL (1.6-2.6); Phosphorus 3.2 mg/dL (2.3-4.7)
[2018-07-18 05:54] LABS: Hemoglobin 8.9 g/dL (14.0-18.0); Mean Corpuscular HGB CONC 36.9 g/dL (32.0-36.0); Mean Corpuscular Hemoglobin 33.1 pg (27.0-31.0); Mean Corpuscular Volume 89.5 fL (78.0-98.0); Mean Platelet Volume 6.3 fL (7.4-10.4); Platelet Count 396 thou/uL (130-400); RBC Distribution Width 14.5 % (11.5-14.5); White Blood Cell (WBC) Count 13.7 thou/uL (4.8-10.8)
[2018-07-18 06:03] LABS: Band 9 % (5-11); Lymphocytes 10 % (21-51); MDiff Complete? YES; Monocytes 2 % (0-10); Neutrophil 79 % (42-75); Nucleated RBC 1 % (0)
[2018-07-18] MEDS ORDERED: Magnesium 2 GM/50 ML 2 GM in Premix Bag 1 BAG IVPB SCH ×2 (08:45→10:45)
[2018-07-18] MEDS ORDERED: Magnesium Sulfate 4 GM in Sodium Chloride 0.9% 250 ML 250 ML IVPB SCH (09:45)
--- NOTE | 2018-07-18 14:03 | PRG ---
DATE OF SERVICE: 07/18/2018 SERVICE: Pulmonary Medicine. INTERVAL HISTORY: The patient is doing really well from a respiratory standpoint. He is breathing comfortably on mechanical ventilator. We put him on a CPAP trial and is doing fine. That being said, when he is on a CPAP trial , we really cannot convince him to take a deep breath and cough. If his saturations remain elevated, he looks comfortable. Otherwise, there has been no interval change to his condition. PHYSICAL EXAMINATION: VITAL SIGNS: Afebrile, pulse 111, blood pressure 155/80, respirations 15, saturation 95% on 21% FiO2 and a PEEP of 5. GENERAL: Patient is awake and alert, in no apparent distress. LUNGS: Decent air entry. Some minimal rhonchi are present. No prolonged expiratory phase or wheezing is appreciated. Dependent crackles are minimal. HEART: Normal rate, regular. ABDOMEN: Soft, nontender, nondistended. Bowel sounds are positive. MUSCULOSKELETAL: No cyanosis or clubbing. There is no pitting in the bilateral lower extremities. NEUROLOGIC: Grossly nonfocal. LABORATORY DATA: WBC 13.7, hemoglobin 8.9, platelets 396,000. Basic metabolic profile is unremarkable. His potassium is 3.7 and magnesium is 1.6. Cultures remain negative except for original blood cultures x2 growing Staph epidermidis. ASSESSMENT: 1. Acute hypoxic respiratory failure, resolved. 2. Severe sepsis. 3. Community-acquired pneumonia. 4. Empyema. 5. Autism. DISCUSSION AND PLAN: I will replace the magnesium and potassium today. We will put him on a spontaneous breathing trial. If he meets criteria, extubation will be considered. I am concerned that he may not be able to handle his secretions once extubated. That being said, I would like to give him the opportunity to see if he will fail as I do not know how long it will take for the secretions to clear up. Pulmonary Critical Care will follow. Critical care time: 30 minutes. CLARENCE
[2018-07-18] MEDS: NS 0.9% w/ 40 MEQ KCL 1,000 ML IV PRN ×2 (18:10→20:08)
[2018-07-18] MEDS: Enoxaparin Sodium 40 MG/0.4 ML SYRINGE SC SCH (20:07)
--- NOTE | 2018-07-18 20:59 | PDOC.PN ---
- Subjective Encounter Start Date: 07/18/18 Encounter Start Time: 14:30 Patient seen and examined for Empyema. Extubated. No new complaints. No overnight events - Objective MAR Reviewed: Yes Vital Signs & Weight: Vital Signs (12 hours) Temp Pulse Ox 07/18/18 20:00 98.7 F 07/18/18 19:46 95 07/18/18 16:00 99.2 F 07/18/18 13:00 98.4 F 07/18/18 12:00 96 07/18/18 09:22 99 Weight Admit Weight 144 lb 6 oz Weight 153 lb 14.122 oz Most Recent Monitor Data Heart Rate from ECG 93 NIBP 150/86 NIBP BP-Mean 107 Respiration from ECG 24 SpO2 94 I&O: 07/17/18 07/18/18 07/19/18 06:59 06:59 06:59 Intake Total 3244.1 2323.9 901 Output Total 1380 2625 1925 Balance 1864.1 -301.1 -1024 Result Diagrams: 07/20/18 03:10 07/20/18 03:10 Additional Labs: Accuchecks 07/18/18 07/18/18 16:33 11:00 POC Glucose 135 H 167 H Phys Exam - Physical Examination Constitutional: NAD Respiratory: no wheezing, no rhonchi Bibasilar rales Cardiovascular: RRR, no rub Gastrointestinal: soft, non-tender, positive bowel sounds Musculoskeletal: no edema Neurological: non-focal Dx/Plan - Plan DVT proph w/SCDs 1. Sepsis with acute organ dysfunction due to CA Pneumonia ?Staph with Empyema 2. Acute hypoxic respiratory failure due to #1 - Extubated 07/18 3. Electrolyte abn - Hyponatremia/Hypokalemia/Hypomagnesemia 4. Staph Epi bacteremia 5. HTN/DM2/Other issues per previous notes PLAN: Cont Meropenem Replace Magnessium AM labs Cont current meds as below Review of Systems - Review of Systems Other: Cannot obtain due to current mentation - Medications/Allergies Allergies/Adverse Reactions: Allergies Allergy/AdvReac Type Severity Reaction Status Date / Time Penicillins Allergy Verified 06/11/18 21:46 Medications: Current Medications Albuterol/Ipratropium (Duoneb) 3 ml NEB [id number] PRN PRN Reason: Wheezing Dextrose/Water (Dextrose 50%) 25 gm SLOW IVP PRN PRN PRN Reason: Hypoglycemia Enoxaparin Sodium (Lovenox) 40 mg SC 2100 [facility] Last Admin: 07/18/18 20:07 Dose: 40 mg Furosemide (Lasix) 20 mg SLOW IVP 0600 [facility]ES [facility] Last Admin: 07/18/18 05:26 Dose: 20 mg Glucagon (Glucagon) 1 mg IM PRN PRN PRN Reason: Hypoglycemia Hydralazine HCl (Apresoline) 10 mg SLOW IVP Q6H PRN PRN Reason: To Keep SBP < 140 mmHG Dextrose/Water (D5w) 1,000 mls @ 0 mls/hr IV .Q0M PRN PRN Reason: Hypoglycemia Meropenem 1 gm/ Device 50 mls @ 100 mls/hr IVPB Q8HR COUNT [facility]CLUDES [facility] Last Admin: 07/18/18 13:00 Dose: 50 mls Potassium Chloride/Sodium Chloride (Ns 0.9% W/ 40 Meq Kcl) 1,000 mls @ 50 mls/ hr IV .Q20H PRN PRN Reason: IF PATIENT UNABLE TO SWALLOW Last Admin: 07/18/18 20:08 Dose: 1,000 mls Insulin Human Lispro (Humalog) 0 units SC .MILD SLIDING SCALE PRN PRN Reason: Mild Correctional Scale Last Admin: 07/17/18 10:57 Dose: 2 unit Miscellaneous Medication (Phos-Nak) 1 pkt PER TUBE TID [facility]CLUD[facility] Last Admin: 07/18/18 20:07 Dose: Not Given Ondansetron HCl (Zofran) 4 mg IVP Q6H PRN PRN Reason: Nausea/Vomiting
[2018-07-19 04:56] LABS: Anion Gap 8 mmol/L (10-20); BUN (Urea Nitrogen) 10 mg/dL (8.4-25.7); Calc. Creatinine Clearance 146 mL/min (70-130); Calcium 8.6 mg/dL (7.8-10.44); Carbon Dioxide 31 mmol/L (23-31); Chloride 102 mmol/L (98-107); Estimated GFR-MDRD Greater than 90; Glucose 110 mg/dL (80-115); Magnesium 1.6 mg/dL (1.6-2.6); Potassium 3.4 mmol/L (3.5-5.1); Sodium 138 mmol/L (136-145)
[2018-07-19] MEDS: MEROPENEM 1 GM/50 ML 1 GM in Premix Bag 1 BAG IVPB SCH ×3 (05:04→21:33)
[2018-07-19] MEDS: Furosemide 20 MG/2 ML VIAL SLOW IVP SCH (06:02)
[2018-07-19 07:08] LABS: Band 8 % (5-11); Hemoglobin 10.4 g/dL (14.0-18.0); Lymphocytes 9 % (21-51); MDiff Complete? YES; Mean Corpuscular Hemoglobin 27.7 pg (27.0-31.0); Mean Corpuscular Volume 89.4 fL (78.0-98.0); Mean Platelet Volume 6.4 fL (7.4-10.4); Metamyelocyte 1 % (0-0); Monocytes 4 % (0-10); Myelocyte 1 % (0-0); Neutrophil 74 % (42-75); Nucleated RBC 1 % (0); PLT Morphology Comment Appears Increased; Platelet Count 454 thou/uL (130-400); Polychromasia SLIGHT = 2-3 cells (100X) (0-2/hpf); RBC Distribution Width 13.6 % (11.5-14.5); Reactive Lymphocytes 3 % (0-10); Red Blood Cell (RBC) Count 3.75 mill/uL (4.70-6.10); White Blood Cell (WBC) Count 15.3 thou/uL (4.8-10.8)
[2018-07-19] MEDS: Famotidine 20 MG TAB PO SCH ×2 (09:39→21:33)
[2018-07-19] MEDS ORDERED: Magnesium Sulfate 4 GM in Sodium Chloride 0.9% 250 ML 250 ML IVPB SCH (10:30)
--- NOTE | 2018-07-19 10:49 | PRG ---
DATE OF SERVICE: 07/19/2018 SERVICE: Pulmonary Medicine. INTERVAL HISTORY: The patient is doing really well from a respiratory standpoint. He remains on peter m air. He has got a vigorous cough. He is able to liberate the sputum. Otherwise, there has been n o interval change in his condition. PHYSICAL EXAMINATION: VITAL SIGNS: Afebrile, pulse 105, blood pressure 150/95, respirations 24, saturation 95% on room air . GENERAL: The patient is awake and alert, in no apparent distress. LUNGS: Excellent air entry. Rhonchi are present, but once again clear with cough. HEART: Normal rate, regular. ABDOMEN: Soft, nontender, nondistended. Bowel sounds are positive. MUSCULOSKELETAL: No cyanosis or clubbing. There is no pitting in the bilateral lower extremities. NEUROLOGIC: Grossly nonfocal. LABORATORY DATA: WBC 15.3, hemoglobin 10.4, platelets of 454,000. This change may very well be from hemoconcentration as all three cell lines are increased. INR 1.8. Basic metabolic profile is essen tially unremarkable except for a potassium of 3.4 and magnesium 1.6. Cultures remain unremarkable. ASSESSMENT: 1. Acute hypoxic respiratory failure, resolved. 2. Community-acquired pneumonia. 3. Empyema. 4. Severe sepsis, improving. 5. Autism. DISCUSSION AND PLAN: We will continue our supportive care including antibiotics. We will mobilize t he patient as much as he tolerates. We will get Physical Therapy involved. From my perspective, he is stable for transition to the medical unit. Once we have a course of antibiotic lined up, he will be stable for transition out of the hospital. Pulmonary will follow while he remains in house.
[2018-07-19] MEDS: HumaLOG 300 UNITS/3 ML VIAL SC PRN (15:51)
--- NOTE | 2018-07-19 17:50 | PDOC.PN ---
- Subjective Encounter Start Date: 07/19/18 Encounter Start Time: 13:00 Patient seen and examined for Sepsis. No new complaints. No overnight events - Objective MAR Reviewed: Yes Vital Signs & Weight: Vital Signs (12 hours) Temp Pulse Pulse BP BP Pulse Ox Pulse Ox 07/19/18 16:00 98.3 F 07/19/18 15:05 105 H 105 H 126/102 H 136/88 97 07/19/18 12:00 98.4 F 07/19/18 09:00 98.4 F 07/19/18 07:15 96 Pulse Ox 07/19/18 16:00 07/19/18 15:05 98 07/19/18 12:00 07/19/18 09:00 07/19/18 07:15 Weight Admit Weight 144 lb 6 oz Weight 147 lb 11 oz Most Recent Monitor Data Heart Rate from ECG 92 NIBP 152/88 NIBP BP-Mean 109 Respiration from ECG 39 SpO2 94 I&O: 07/18/18 07/19/18 07/20/18 06:59 06:59 06:59 Intake Total 2323.9 1666 745 Output Total 2625 3575 1700 Balance -301.1 -1909 -955 Result Diagrams: 07/20/18 03:10 07/20/18 03:10 Additional Labs: Accuchecks 07/19/18 07/19/18 07/18/18 11:40 05:00 21:30 POC Glucose 127 H 100 119 H EKG Reviewed by me: Yes (Tele SR) Phys Exam - Physical Examination Constitutional: NAD Respiratory: no wheezing, no rhonchi Bibasilar rales Cardiovascular: RRR, no rub Gastrointestinal: soft, non-tender, positive bowel sounds Musculoskeletal: no edema Neurological: moves all 4 limbs Dx/Plan - Plan DVT proph w/SCDs 1. Sepsis with acute organ dysfunction due to CA Pneumonia ?Staph with Empyema 2. Acute hypoxic respiratory failure due to #1 - Extubated 07/18 3. Electrolyte abn - Hyponatremia/Hypokalemia/Hypomagnesemia 4. Staph Epi bacteremia 5. HTN/DM2/Other issues per previous notes PLAN: Cont Atbx AM labs Cont current meds as below Review of Systems - Review of Systems Other: Cannot reliably obtained due to current cognition - Medications/Allergies Allergies/Adverse Reactions: Allergies Allergy/AdvReac Type Severity Reaction Status Date / Time Penicillins Allergy Verified 06/11/18 21:46 Medications: Current Medications Albuterol/Ipratropium (Duoneb) 3 ml NEB [id number] PRN PRN Reason: Wheezing Dextrose/Water (Dextrose 50%) 25 gm SLOW IVP PRN PRN PRN Reason: Hypoglycemia Enoxaparin Sodium (Lovenox) 40 mg SC 2100 [facility] Last Admin: 07/18/18 20:07 Dose: 40 mg Famotidine (Pepcid) 20 mg PO BID [facility] Last Admin: 07/19/18 09:39 Dose: 20 mg Glucagon (Glucagon) 1 mg IM PRN PRN PRN Reason: Hypoglycemia Hydralazine HCl (Apresoline) 10 mg SLOW IVP Q6H PRN PRN Reason: To Keep SBP < 140 mmHG Dextrose/Water (D5w) 1,000 mls @ 0 mls/hr IV .Q0M PRN PRN Reason: Hypoglycemia Meropenem 1 gm/ Device 50 mls @ 100 mls/hr IVPB Q8HR [facility] Last Admin: 07/19/18 13:21 Dose: 50 mls Insulin Human Lispro (Humalog) 0 units SC .MILD SLIDING SCALE PRN PRN Reason: Mild Correctional Scale Last Admin: 07/19/18 15:51 Dose: 2 unit Miscellaneous Medication (Phos-Nak) 1 pkt PER TUBE TID [facility] Last Admin: 07/19/18 15:53 Dose: 1 pkt Ondansetron HCl (Zofran) 4 mg IVP Q6H PRN PRN Reason: Nausea/Vomiting
[2018-07-19] MEDS: Enoxaparin Sodium 40 MG/0.4 ML SYRINGE SC SCH (21:32)
[2018-07-20 04:39] LABS: Anion Gap 9 mmol/L (10-20); BUN (Urea Nitrogen) 11 mg/dL (8.4-25.7); Calc. Creatinine Clearance 122 mL/min (70-130); Calcium 8.5 mg/dL (7.8-10.44); Carbon Dioxide 31 mmol/L (23-31); Chloride 102 mmol/L (98-107); Estimated GFR-MDRD Greater than 90; Glucose 104 mg/dL (80-115); Magnesium 2.2 mg/dL (1.6-2.6); Potassium 4.3 mmol/L (3.5-5.1); Sodium 138 mmol/L (136-145)
[2018-07-20 04:47] LABS: Band 1 % (5-11); Hemoglobin 10.2 g/dL (14.0-18.0); Hypochromia SLIGHT = 6-15 cells (100X) (0-5/hpf); Lymphocytes 7 % (21-51); MDiff Complete? YES; Mean Corpuscular HGB CONC 33.4 g/dL (32.0-36.0); Mean Corpuscular Hemoglobin 29.7 pg (27.0-31.0); Mean Corpuscular Volume 88.9 fL (78.0-98.0); Mean Platelet Volume 7.4 fL (7.4-10.4); Monocytes 4 % (0-10); Neutrophil 88 % (42-75); PLT Morphology Comment Appears Adequate; Platelet Count 310 thou/uL (130-400); RBC Distribution Width 14.2 % (11.5-14.5); Red Blood Cell (RBC) Count 3.45 mill/uL (4.70-6.10); White Blood Cell (WBC) Count 12.4 thou/uL (4.8-10.8)
[2018-07-20] MEDS: MEROPENEM 1 GM/50 ML 1 GM in Premix Bag 1 BAG IVPB SCH ×3 (05:58→21:09)
[2018-07-20] MEDS: Famotidine 20 MG TAB PO SCH ×2 (09:34→20:42)
[2018-07-20] MEDS: HumaLOG 300 UNITS/3 ML VIAL SC PRN (10:21)
--- NOTE | 2018-07-20 12:42 | PRG ---
DATE OF SERVICE: 07/20/2018 SERVICE: Pulmonary Medicine. INTERVAL HISTORY: The patient is doing really well from a respiratory standpoint. He is on room air . He is participating with physical therapy. He actually walked. Otherwise, there has been no inte rval change to his condition. He does not appear to have any discomforts. PHYSICAL EXAMINATION: VITAL SIGNS: Afebrile, pulse 115, blood pressure 158/80, respirations 33, saturation 93% on room air . GENERAL: The patient is awake, alert, no apparent distress. LUNGS: Minimal dependent crackles are present. There is no prolonged expiratory phase or wheezing p resent. HEART: Normal rate, regular. ABDOMEN: Soft, nontender, nondistended. Bowel sounds are positive. MUSCULOSKELETAL: No cyanosis or clubbing. There is no pitting in the bilateral lower extremities. NEUROLOGIC: Grossly nonfocal. LABORATORY DATA: WBC 12.4, hemoglobin 10.2, platelets 310,000. Neutrophils are 88% on top of 1% ban d. Basic metabolic profile is completely unremarkable with normal magnesium. Culture results remain negative other than original blood cultures x2 are growing Staph epidermidis. ASSESSMENT: 1. Acute hypoxic respiratory failure, resolved. 2. Community-acquired pneumonia. 3. Empyema. 4. Severe sepsis, resolved. 5. Autism, DISCUSSION AND PLAN: From my perspective, we can switch him over to p.o. antibiotic based on Dr. Patricio cedeno' recommendation. We can get the central line out. If all goes well, he can go home in 24-48 hour s if physical therapy deems that disposition is safe.
--- NOTE | 2018-07-20 17:55 | PDOC.PN ---
- Subjective Encounter Start Date: 07/20/18 Encounter Start Time: 12:00 Patient seen and examined for sepsis. Doing well per caregiver. Does not like thickened consistency. No overnight events - Objective MAR Reviewed: Yes Vital Signs & Weight: Vital Signs (12 hours) Temp Pulse Resp BP Pulse Ox 07/20/18 16:00 97.5 F L 92 18 140/81 93 L 07/20/18 12:33 94 L 07/20/18 10:50 97.8 F 100 22 H 143/88 H 94 L 07/20/18 08:00 98 F 93 L 07/20/18 07:20 92 L Weight Admit Weight 144 lb 6 oz Weight 148 lb Most Recent Monitor Data Heart Rate from ECG 117 NIBP 158/80 NIBP BP-Mean 106 Respiration from ECG 32 SpO2 93 I&O: 07/19/18 07/20/18 07/21/18 06:59 06:59 06:59 Intake Total 1666 1581 500 Output Total 3575 1752 100 Balance -1909 -171 400 Result Diagrams: 07/20/18 03:10 07/20/18 03:10 Additional Labs: Accuchecks 07/20/18 07/20/18 07/20/18 16:02 10:19 04:19 POC Glucose 135 H 222 H 112 H 07/19/18 21:37 POC Glucose 111 H Phys Exam - Physical Examination Constitutional: NAD Respiratory: no wheezing, no rhonchi Bibasilar rales Cardiovascular: RRR, no rub Gastrointestinal: soft, non-tender, positive bowel sounds Musculoskeletal: no edema Neurological: moves all 4 limbs Dx/Plan - Plan DVT proph w/lovenox, DVT proph w/SCDs 1. Sepsis with acute organ dysfunction due to Pneumonia ?Staph with Empyema 2. Acute hypoxic respiratory failure due to #1 - Extubated 07/18 3. Electrolyte abn - Hyponatremia/Hypokalemia/Hypomagnesemia 4. Staph Epi bacteremia 5. HTN/DM2/Autism/Swallow dys/Other issues per previous notes PLAN: Cont Meropenem - Change to Augmentin at dc Cont modified diet DC KPhos Cont other meds as below Review of Systems - Review of Systems Respiratory: Cough, Dry. negative: Shortness of Breath, Hemoptysis, SOB with Excertion, Pleuritic Pain, Sputum, Wheezing Cardiovascular: negative: chest pain, palpitations, orthopnea, paroxysmal nocturnal dyspnea, edema, light headedness, other - Medications/Allergies Allergies/Adverse Reactions: Allergies Allergy/AdvReac Type Severity Reaction Status Date / Time Penicillins Allergy Verified 06/11/18 21:46 Medications: Current Medications Albuterol/Ipratropium (Duoneb) 3 ml NEB [id number] PRN PRN Reason: Wheezing Aspirin (Aspirin Chewable) 81 mg PO DAILY [facility] Dextrose/Water (Dextrose 50%) 25 gm SLOW IVP PRN PRN PRN Reason: Hypoglycemia Enoxaparin Sodium (Lovenox) 40 mg SC 2100 [facility] Last Admin: 07/19/18 21:32 Dose: 40 mg Famotidine (Pepcid) 20 mg PO BID [facility] Last Admin: 07/20/18 09:34 Dose: 20 mg Glucagon (Glucagon) 1 mg IM PRN PRN PRN Reason: Hypoglycemia Hydralazine HCl (Apresoline) 10 mg SLOW IVP Q6H PRN PRN Reason: To Keep SBP < 140 mmHG Dextrose/Water (D5w) 1,000 mls @ 0 mls/hr IV .Q0M PRN PRN Reason: Hypoglycemia Meropenem 1 gm/ Device 50 mls @ 100 mls/hr IVPB Q8HR [facility] Last Admin: 07/20/18 14:58 Dose: 50 mls Insulin Human Lispro (Humalog) 0 units SC .MILD SLIDING SCALE PRN PRN Reason: Mild Correctional Scale Last Admin: 07/20/18 10:21 Dose: 3 unit Miscellaneous Medication (Phos-Nak) 1 pkt PER TUBE TID [facility] Last Admin: 07/20/18 14:59 Dose: 1 pkt Ondansetron HCl (Zofran) 4 mg IVP Q6H PRN PRN Reason: Nausea/Vomiting
[2018-07-20] MEDS: Enoxaparin Sodium 40 MG/0.4 ML SYRINGE SC SCH (20:42)
[2018-07-21] MEDS: MEROPENEM 1 GM/50 ML 1 GM in Premix Bag 1 BAG IVPB SCH ×3 (05:10→22:45)
[2018-07-21] MEDS: Famotidine 20 MG TAB PO SCH ×2 (08:15→20:04)
[2018-07-21] MEDS: Saccharomyces boulardii 250 MG CAP PO SCH (08:15)
[2018-07-21 13:47] VITALS: BMI 25.0
--- NOTE | 2018-07-21 14:38 | PRG ---
DATE OF SERVICE: 07/21/2018 SERVICE: Pulmonary Medicine. INTERVAL HISTORY: The patient is doing outstanding from a respiratory standpoint. He is breathing c omfortably. There has been no interval change to his condition. Otherwise, nurse reports no overnig ht events. He specifically denies shortness of breath or chest discomfort. PHYSICAL EXAMINATION: VITAL SIGNS: Afebrile, pulse 103, blood pressure 134/85, respirations 18, saturation 95% on room air . GENERAL: The patient is awake and alert, in no apparent distress. LUNGS: Excellent air entry. There is no prolonged expiratory phase, wheezing, rhonchi or crackles p resent. HEART: Normal rate, regular. ABDOMEN: Soft, nontender, nondistended. Bowel sounds are positive. MUSCULOSKELETAL: No cyanosis or clubbing. No pitting in the bilateral lower extremities. NEUROLOGIC: Grossly nonfocal. ASSESSMENT: 1. Acute hypoxic respiratory failure, resolved. 2. Empyema, status post decortication, postoperative day number 6. 3. Community-acquired pneumonia. 4. Autism, mute. DISCUSSION AND PLAN: The patient can be converted over to p.o. antibiotics based on Dr. Sanchez' recom mendations. At this time, he is stable for transition out of the hospital. Pulmonary will continue to follow, intermittently throughout the hospital stay. If he gets into trouble over the weekend, pl ease give Dr. Bass a call.
--- NOTE | 2018-07-21 17:04 | EKG ---
Test Reason : FEVER Blood Pressure : / mmHG Vent. Rate : 121 BPM Atrial Rate : 121 BPM P-R Int : 134 ms QRS Dur : 084 ms QT Int : 294 ms P-R-T Axes : 048 041 072 degrees QTc Int : 417 ms Sinus tachycardia Nonspecific T wave abnormality Abnormal ECG Confirmed by PINEDA PEREZ ([id number]), manuscript editor JUANIS AVITIA ([id number] on 07/21/2018 5:04:13 PM Referred By: Confirmed By:PINEDA PEREZ
--- NOTE | 2018-07-21 19:55 | PDOC.PN ---
- Subjective Encounter Start Date: 07/21/18 Encounter Start Time: 19:10 Subjective: f/u for empyema s/p mech vent, decortication on Meropenem. No new -: issues reported. - Objective MAR Reviewed: Yes Vital Signs & Weight: Vital Signs (12 hours) Temp 07/21/18 12:30 98.3 F Weight Admit Weight 144 lb 6 oz Weight 136 lb 10.986 oz Most Recent Monitor Data Heart Rate from ECG 117 NIBP 158/80 NIBP BP-Mean 106 Respiration from ECG 32 SpO2 93 I&O: 07/20/18 07/21/18 07/22/18 06:59 06:59 06:59 Intake Total 1581 1430 910 Output Total 1752 100 Balance -171 1330 910 Result Diagrams: 07/20/18 03:10 07/20/18 03:10 Additional Labs: Accuchecks 07/21/18 07/21/18 07/21/18 16:12 11:35 05:28 POC Glucose 95 111 H 115 H 07/20/18 20:48 POC Glucose 160 H Phys Exam - Physical Examination Constitutional: NAD HEENT: PERRLA, sclera anicteric, oral pharynx no lesions Neck: no nodes, no JVD, supple, full ROM occasional rales S1, S2 Cardiovascular: RRR, no significant murmur, no rub, gallop Gastrointestinal: soft, non-tender, no distention, positive bowel sounds Musculoskeletal: no edema, pulses present Neurological: normal sensation, moves all 4 limbs Skin: no rash, normal turgor, cap refill <2 seconds Dx/Plan (1) Sepsis Code(s): A41.9 - SEPSIS, UNSPECIFIED ORGANISM Status: Acute Qualifiers: Sepsis type: sepsis due to unspecified organism Qualified Code(s): A41.9 - Sepsis, unspecified organism Comment: Suspected due to PNA, empyema, resolving (2) Empyema lung Code(s): J86.9 - PYOTHORAX WITHOUT FISTULA Status: Acute Comment: s/p thoracostomy and decortication (3) Autism Status: Chronic Comment: Supportive mgmt (4) Dysphagia Code(s): R13.10 - DYSPHAGIA, UNSPECIFIED Status: Chronic Qualifiers: Dysphagia type: oropharyngeal phase Qualified Code(s): R13.12 - Dysphagia, oropharyngeal phase Comment: monitor for aspiration, thickened liquids - Plan continue antibiotics, social services aide, speech therapy, respiratory therapy, DVT proph w/SCDs Stable overall -: Convert to Augmentin in 24h -: Monitor for dysphagia, continue thickened liquids -: OOB/chair -: Likely home in 24-48h * .
[2018-07-21] MEDS: Enoxaparin Sodium 40 MG/0.4 ML SYRINGE SC SCH (20:03)
[2018-07-22] MEDS: MEROPENEM 1 GM/50 ML 1 GM in Premix Bag 1 BAG IVPB SCH ×3 (05:12→22:08)
[2018-07-22] MEDS: Saccharomyces boulardii 250 MG CAP PO SCH (08:11)
[2018-07-22] MEDS: Famotidine 20 MG TAB PO SCH ×2 (08:12→20:09)
--- NOTE | 2018-07-22 13:40 | PDOC.PN ---
- Subjective Encounter Start Date: 07/22/18 Encounter Start Time: 10:00 Pt seen for followup re: sepsis. Pt nonverbal, unable to complete ROS. - Objective MAR Reviewed: Yes Vital Signs & Weight: Vital Signs (12 hours) Temp Pulse Resp BP Pulse Ox 07/22/18 08:10 96 07/22/18 07:23 98.9 F 99 20 123/76 96 Weight Admit Weight 144 lb 6 oz Weight 134 lb 3.2 oz Most Recent Monitor Data Heart Rate from ECG 117 NIBP 158/80 NIBP BP-Mean 106 Respiration from ECG 32 SpO2 93 I&O: 07/21/18 07/22/18 07/23/18 06:59 06:59 06:59 Intake Total 1430 910 Output Total 100 Balance 1330 910 Result Diagrams: 07/20/18 03:10 07/20/18 03:10 Additional Labs: Accuchecks 07/22/18 07/22/18 07/21/18 11:05 05:43 20:55 POC Glucose 120 H 106 111 H 07/21/18 16:12 POC Glucose 95 Labs reviewed by me Phys Exam - Physical Examination Constitutional: NAD HEENT: moist MMs Neck: supple Respiratory: clear to auscultation bilateral Cardiovascular: RRR Gastrointestinal: soft Neurological: moves all 4 limbs Psychiatric: normal affect Dx/Plan (1) Sepsis Code(s): A41.9 - SEPSIS, UNSPECIFIED ORGANISM Status: Acute Qualifiers: Sepsis type: sepsis due to unspecified organism Qualified Code(s): A41.9 - Sepsis, unspecified organism Comment: Imrpving, due to PNA, empyema (2) Empyema lung Code(s): J86.9 - PYOTHORAX WITHOUT FISTULA Status: Acute Comment: s/p thoracostomy and decortication (3) Community acquired pneumonia Code(s): J18.9 - PNEUMONIA, UNSPECIFIED ORGANISM Status: Acute Comment: continue antibiotics as below (4) Diabetes type 2, controlled Code(s): E11.9 - TYPE 2 DIABETES MELLITUS WITHOUT COMPLICATIONS Status: Chronic Qualifiers: Diabetes mellitus prison insulin use: without long term care phlebotomist use Diabetes mellitus complication status: without complication Qualified Code(s): E11.9 - Type 2 diabetes mellitus without complications Comment: controlled (5) GERD (gastroesophageal reflux disease) Code(s): K21.9 - GASTRO-ESOPHAGEAL REFLUX DISEASE WITHOUT ESOPHAGITIS Status: Chronic Qualifiers: Qualified Code(s): K21.9 - Gastro-esophageal reflux disease without esophagitis Comment: stable - Plan * . Review of Systems - Medications/Allergies Allergies/Adverse Reactions: Allergies Allergy/AdvReac Type Severity Reaction Status Date / Time Penicillins Allergy Verified 06/11/18 21:46 Medications: Current Medications Albuterol/Ipratropium (Duoneb) 3 ml NEB [id number] PRN PRN Reason: Wheezing Aspirin (Aspirin Chewable) 81 mg PO DAILY [facility] Last Admin: 07/22/18 08:11 Dose: 81 mg Dextrose/Water (Dextrose 50%) 25 gm SLOW IVP PRN PRN PRN Reason: Hypoglycemia Enoxaparin Sodium (Lovenox) 40 mg SC 2100 [facility] Last Admin: 07/21/18 20:03 Dose: 40 mg Famotidine (Pepcid) 20 mg PO BID [facility] Last Admin: 07/22/18 08:12 Dose: 20 mg Glucagon (Glucagon) 1 mg IM PRN PRN PRN Reason: Hypoglycemia Hydralazine HCl (Apresoline) 10 mg SLOW IVP Q6H PRN PRN Reason: To Keep SBP < 140 mmHG Dextrose/Water (D5w) 1,000 mls @ 0 mls/hr IV .Q0M PRN PRN Reason: Hypoglycemia Meropenem 1 gm/ Device 50 mls @ 100 mls/hr IVPB Q8HR [facility] Last Admin: 07/22/18 05:12 Dose: 50 mls Insulin Human Lispro (Humalog) 0 units SC .MILD SLIDING SCALE PRN PRN Reason: Mild Correctional Scale Last Admin: 07/20/18 10:21 Dose: 3 unit Ondansetron HCl (Zofran) 4 mg IVP Q6H PRN PRN Reason: Nausea/Vomiting Saccharomyces Boulardii (Florastor) 250 mg PO DAILY [facility] Last Admin: 07/22/18 08:11 Dose: 250 mg
[2018-07-22] MEDS: Enoxaparin Sodium 40 MG/0.4 ML SYRINGE SC SCH (20:10)
[2018-07-23] MEDS: MEROPENEM 1 GM/50 ML 1 GM in Premix Bag 1 BAG IVPB SCH ×3 (05:02→21:14)
[2018-07-23] MEDS: Saccharomyces boulardii 250 MG CAP PO SCH (07:48)
[2018-07-23] MEDS: Famotidine 20 MG TAB PO SCH ×2 (07:48→20:11)
--- NOTE | 2018-07-23 12:54 | PDOC.PN ---
- Subjective Encounter Start Date: 07/23/18 Encounter Start Time: 08:00 Pt seen for followup re: sepsis. Pt nonverbal, unable to complete ROS. - Objective MAR Reviewed: Yes Vital Signs & Weight: Vital Signs (12 hours) Temp Pulse Resp BP Pulse Ox 07/23/18 08:00 94 L 07/23/18 07:32 98.9 F 105 H 20 141/77 H 94 L Weight Admit Weight 144 lb 6 oz Weight 133 lb 1 oz Most Recent Monitor Data Heart Rate from ECG 117 NIBP 158/80 NIBP BP-Mean 106 Respiration from ECG 32 SpO2 93 I&O: 07/22/18 07/23/18 07/24/18 06:59 06:59 06:59 Intake Total 910 550 Balance 910 550 Result Diagrams: 07/20/18 03:10 07/20/18 03:10 Additional Labs: Accuchecks 07/23/18 07/23/18 07/22/18 11:49 04:01 19:57 POC Glucose 105 101 138 H 07/22/18 15:32 POC Glucose 121 H Labs reviewed by me Phys Exam - Physical Examination Constitutional: NAD HEENT: moist MMs Neck: supple Respiratory: clear to auscultation bilateral Cardiovascular: RRR Gastrointestinal: soft Neurological: moves all 4 limbs Psychiatric: normal affect Dx/Plan (1) Sepsis Code(s): A41.9 - SEPSIS, UNSPECIFIED ORGANISM Status: Acute Qualifiers: Sepsis type: sepsis due to unspecified organism Qualified Code(s): A41.9 - Sepsis, unspecified organism Comment: Improving (2) Empyema lung Code(s): J86.9 - PYOTHORAX WITHOUT FISTULA Status: Acute Comment: stable, s/ p thoracostomy and decortication (3) Community acquired pneumonia Code(s): J18.9 - PNEUMONIA, UNSPECIFIED ORGANISM Status: Acute Comment: continue antibiotics as below (4) Diabetes type 2, controlled Code(s): E11.9 - TYPE 2 DIABETES MELLITUS WITHOUT COMPLICATIONS Status: Chronic Qualifiers: Diabetes mellitus long term care pharmacist insulin use: without [facility] use Diabetes mellitus complication status: without complication Qualified Code(s): E11.9 - Type 2 diabetes mellitus without complications Comment: controlled (5) GERD (gastroesophageal reflux disease) Code(s): K21.9 - GASTRO-ESOPHAGEAL REFLUX DISEASE WITHOUT ESOPHAGITIS Status: Chronic Qualifiers: Qualified Code(s): K21.9 - Gastro-esophageal reflux disease without esophagitis Comment: stable - Plan * . Review of Systems - Medications/Allergies Allergies/Adverse Reactions: Allergies Allergy/AdvReac Type Severity Reaction Status Date / Time Penicillins Allergy Verified 06/11/18 21:46 Medications: Current Medications Albuterol/Ipratropium (Duoneb) 3 ml NEB [id number] PRN PRN Reason: Wheezing Aspirin (Aspirin Chewable) 81 mg PO DAILY [facility] Last Admin: 07/23/18 07:48 Dose: 81 mg Dextrose/Water (Dextrose 50%) 25 gm SLOW IVP PRN PRN PRN Reason: Hypoglycemia Enoxaparin Sodium (Lovenox) 40 mg SC 2100 [facility] Last Admin: 07/22/18 20:10 Dose: 40 mg Famotidine (Pepcid) 20 mg PO BID [facility] Last Admin: 07/23/18 07:48 Dose: 20 mg Glucagon (Glucagon) 1 mg IM PRN PRN PRN Reason: Hypoglycemia Hydralazine HCl (Apresoline) 10 mg SLOW IVP Q6H PRN PRN Reason: To Keep SBP < 140 mmHG Dextrose/Water (D5w) 1,000 mls @ 0 mls/hr IV .Q0M PRN PRN Reason: Hypoglycemia Meropenem 1 gm/ Device 50 mls @ 100 mls/hr IVPB Q8HR [facility] Last Admin: 07/23/18 05:02 Dose: 50 mls Insulin Human Lispro (Humalog) 0 units SC .MILD SLIDING SCALE PRN PRN Reason: Mild Correctional Scale Last Admin: 07/20/18 10:21 Dose: 3 unit Ondansetron HCl (Zofran) 4 mg IVP Q6H PRN PRN Reason: Nausea/Vomiting Saccharomyces Boulardii (Florastor) 250 mg PO DAILY [facility] Last Admin: 07/23/18 07:48 Dose: 250 mg
[2018-07-23] MEDS: Enoxaparin Sodium 40 MG/0.4 ML SYRINGE SC SCH (20:11)
[2018-07-24] MEDS: MEROPENEM 1 GM/50 ML 1 GM in Premix Bag 1 BAG IVPB SCH (05:04)
[2018-07-24] MEDS: Nystatin Powder 15 GM BOT TOP PRN ×2 (05:11→15:10)
[2018-07-24] MEDS: Boudreaux's Butt Paste 16% Oin 30 GM TUBE TOP PRN ×2 (05:12→15:10)
[2018-07-24] MEDS: Famotidine 20 MG TAB PO SCH (09:04)
[2018-07-24] MEDS: Saccharomyces boulardii 250 MG CAP PO SCH (09:04)
[2018-07-24] MEDS ORDERED: Clindamycin 150 MG CAP PO SCH ×2 (14:00→15:00)
--- NOTE | 2018-07-24 14:09 | PDOC.PN ---
- Subjective Encounter Start Date: 07/24/18 Encounter Start Time: 13:57 Pt seen for followup re: empyema. Nonverbal, ROS could not be completed. - Objective MAR Reviewed: Yes Vital Signs & Weight: Vital Signs (12 hours) Temp Pulse Resp BP Pulse Ox 07/24/18 07:10 98.7 F 94 18 132/78 96 Weight Admit Weight 144 lb 6 oz Weight 133 lb 4.8 oz Most Recent Monitor Data Heart Rate from ECG 117 NIBP 158/80 NIBP BP-Mean 106 Respiration from ECG 32 SpO2 93 I&O: 07/23/18 07/24/18 07/25/18 06:59 06:59 06:59 Intake Total 550 410 Balance 550 410 Result Diagrams: 07/20/18 03:10 07/20/18 03:10 Additional Labs: Accuchecks 07/24/18 07/24/18 07/23/18 11:16 05:07 19:50 POC Glucose 113 H 99 158 H 07/23/18 16:48 POC Glucose 100 labs reviewed by me Phys Exam - Physical Examination Constitutional: NAD HEENT: moist MMs Neck: supple Respiratory: clear to auscultation bilateral Cardiovascular: RRR Gastrointestinal: soft Neurological: moves all 4 limbs Psychiatric: normal affect Dx/Plan (1) Community acquired pneumonia Code(s): J18.9 - PNEUMONIA, UNSPECIFIED ORGANISM Status: Acute Comment: change antibiotics to fluoroquinolones (pt's caregiver reports he has penicillin allergy involving breathing difficulty) (2) Empyema lung Code(s): J86.9 - PYOTHORAX WITHOUT FISTULA Status: Acute Comment: stable, s/ p thoracostomy and decortication (3) Diabetes type 2, controlled Code(s): E11.9 - TYPE 2 DIABETES MELLITUS WITHOUT COMPLICATIONS Status: Chronic Qualifiers: Diabetes mellitus detention insulin use: without detention use Diabetes mellitus complication status: without complication Qualified Code(s): E11.9 - Type 2 diabetes mellitus without complications Comment: controlled (4) GERD (gastroesophageal reflux disease) Code(s): K21.9 - GASTRO-ESOPHAGEAL REFLUX DISEASE WITHOUT ESOPHAGITIS Status: Chronic Qualifiers: Qualified Code(s): K21.9 - Gastro-esophageal reflux disease without esophagitis Comment: stable (5) Sepsis Code(s): A41.9 - SEPSIS, UNSPECIFIED ORGANISM Status: Resolved Qualifiers: Sepsis type: sepsis due to unspecified organism Qualified Code(s): A41.9 - Sepsis, unspecified organism - Plan plan discussed w/ family, continue antibiotics * . Likely home tomorrow Review of Systems - Medications/Allergies Allergies/Adverse Reactions: Allergies Allergy/AdvReac Type Severity Reaction Status Date / Time Penicillins Allergy Verified 06/11/18 21:46 Medications: Current Medications Albuterol/Ipratropium (Duoneb) 3 ml NEB [id number] PRN PRN Reason: Wheezing Aspirin (Aspirin Chewable) 81 mg PO DAILY [facility] Last Admin: 07/24/18 09:03 Dose: 81 mg Clindamycin HCl (Cleocin) 300 mg PO Q8H [facility] Dextrose/Water (Dextrose 50%) 25 gm SLOW IVP PRN PRN PRN Reason: Hypoglycemia Enoxaparin Sodium (Lovenox) 40 mg SC 2100 [facility] Last Admin: 07/23/18 20:11 Dose: 40 mg Famotidine (Pepcid) 20 mg PO BID [facility] Last Admin: 07/24/18 09:04 Dose: 20 mg Glucagon (Glucagon) 1 mg IM PRN PRN PRN Reason: Hypoglycemia Hydralazine HCl (Apresoline) 10 mg SLOW IVP Q6H PRN PRN Reason: To Keep SBP < 140 mmHG Dextrose/Water (D5w) 1,000 mls @ 0 mls/hr IV .Q0M PRN PRN Reason: Hypoglycemia Insulin Human Lispro (Humalog) 0 units SC .MILD SLIDING SCALE PRN PRN Reason: Mild Correctional Scale Last Admin: 07/20/18 10:21 Dose: 3 unit Nystatin (Mycostatin Powder) 0 gm TOP PRN PRN PRN Reason: AFFECTED AREA Last Admin: 07/24/18 05:11 Dose: 1 applic Ondansetron HCl (Zofran) 4 mg IVP Q6H PRN PRN Reason: Nausea/Vomiting Saccharomyces Boulardii (Florastor) 250 mg PO DAILY [facility] Last Admin: 07/24/18 09:04 Dose: 250 mg Zinc Oxide (Priscila's Butt Paste 16% Oin) 0 gm TOP ASDIR PRN PRN Reason: Rash/Topical Irritation Last Admin: 07/24/18 05:12 Dose: 1 applic
[2018-07-24 15:59] VITALS: BP 135/79; TEMP 97.3
--- NOTE | 2018-07-24 22:14 | DIS ---
DATE OF ADMISSION: 07/11/2018 DATE OF DISCHARGE: 07/24/2018 PRIMARY CARE PHYSICIAN: Dr. Lavern Jin. DISCHARGE DIAGNOSES: 1. Pneumonia. 2. Empyema. 3. Staphylococcus epidermidis bacteremia. 4. Aspiration. 5. Sepsis. CONDITION OF PATIENT ON THE DAY OF DISCHARGE: Stable. I assessed Mr. Lares on the day of discharge. Please refer to my daily progress note for further details regarding this [id number] encounter. DISCHARGE MEDICATIONS: Aspirin 81 mg daily, Florastor 250 mg daily for 4 weeks, clindamycin 300 mg 4 times a day for 4 weeks, Ventolin HFA p.r.n., vitamin C 500 mg daily, vitamin D3 of 400 units daily, Flonase nasal spray 1-2 sprays to each naris daily, lovastatin 10 mg daily, multivitamins 1 tablet d aily. CONSULTATIONS DURING THIS HOSPITALIZATION: Pulmonology, Dr. Serrano; cardiovascular surgery, Dr. Valentino Lewis, and infectious diseases, Dr. Leonides Sanchez. HOSPITAL COURSE: Mr. Lares is a pleasant 68-year-old gentleman who was admitted to [facility] on 07/11/2018 for pneumonia and empyema. Please refer to Dr. Gonsales's history a nd physical note dated 07/11/2018 for further details. On 07/12/2018, he underwent CT-guided right t horacentesis. He was found to have an empyema. He was treated with broad spectrum antibiotics. He was seen by Infectious Diseases Service as well as Pulmonology Service. Cardiovascular Surgery was c onsulted as well. On 07/14/2018, the patient underwent right subclavian triple lumen CVP and thoraco scopy, total lung decortication. The patient continued to progressively improve. Blood cultures gre w Staphylococcus epidermidis. Pleural fluid culture did not show any growth in 5 days. At the time of this dictation, acid fast bacilli culture report is pending. He was treated with intravenous meropenem and is being stepped down to oral clindamycin at the time o f discharge. He will need to be on clindamycin for 4 more weeks. He is advised to follow up with lmonology Service as outpatient. Many thanks for allowing me to participate in your patient's care. Please feel free to contact me wi th any questions or concerns. DISCHARGE DESTINATION: Home. TOTAL AMOUNT OF TIME SPENT COORDINATING THIS DISCHARGE: 32 minutes.
== END 2018-07-24 15:45 | disposition home or self-care (01) | DRG 853 ==
LOC: ERS 02:05 → 2SE 08:30 → CCU 07-14 10:44 → T4-A 07-20 10:40
PROVIDERS: ADMIT Internal Medicine; ATTEND Internal Medicine
PROC: 0W993ZX Drainage of Right Pleural Cavity, Percutaneous Approach, Diagnostic (ICD-10-PCS; 2018-07-12)
PROC: 0BH17EZ Insertion of Endotracheal Airway into Trachea, Via Natural or Artificial Opening (ICD-10-PCS; 2018-07-13)
PROC: 5A1945Z Respiratory Ventilation, 24-96 Consecutive Hours (ICD-10-PCS; 2018-07-13)
PROC: 0BNK4ZZ Release Right Lung, Percutaneous Endoscopic Approach (ICD-10-PCS; principal; 2018-07-14)
PROC: 0W993ZX Drainage of Right Pleural Cavity, Percutaneous Approach, Diagnostic (ICD-10-PCS; 2018-07-14)
DX: A41.9 Sepsis, unspecified organism (principal); J86.9 Pyothorax without fistula; J96.01 Acute respiratory failure with hypoxia; J18.9 Pneumonia, unspecified organism; F84.0 Autistic disorder; E87.1 Hypo-osmolality and hyponatremia; E11.9 Type 2 diabetes mellitus without complications; I10 Essential (primary) hypertension; Z79.82 Long term (current) use of aspirin; E87.8 Other disorders of electrolyte and fluid balance, not elsewhere classified; N20.0 Calculus of kidney; E87.6 Hypokalemia; E83.42 Hypomagnesemia; R13.12 Dysphagia, oropharyngeal phase; K21.9 Gastro-esophageal reflux disease without esophagitis; B95.8 Unspecified staphylococcus as the cause of diseases classified elsewhere; R65.20 Severe sepsis without septic shock; Z85.038 Personal history of other malignant neoplasm of large intestine; Z86.010 Personal history of colon polyps; Z88.0 Allergy status to penicillin
CPT/HCPCS: 32405; 36415; 36416; 70360; 71045; 71046; 71250; 74177; 74230; 77002; 80048; 80053; 81003; 81015; 82550; 82553; 82805; 82945; 83605; 83615; 83735; 83986; 84100; 84157; 84484; 85025; 85060; 85610; 85730; 87040; 87070; 87077; 87086; 87116; 87149; 87186; 87205; 87206; 87804; 88112; 88305; 89051; 93005; 93306; 94002; 94003; 94760; 96365; 96367; 96375; G8978-GP-CM; G8979-GP-CJ; G8996-GN-CK; G8997-GN-CK; J0670; J1642; J1650; J1940; J1956; J2001; J2060; J2185; J2250; J2405; J2704; J3010; J3370; J3475; J3490; J7050

== ENCOUNTER 2018-08-18 09:42 | Outpatient (CLI) | payer MEDICARE, MEDICAID ==
--- NOTE | 2018-08-18 11:18 | RAD ---
PA AND LATERAL CHEST: History: Dyspnea. FINDINGS/IMPRESSION: Comparison made with exam of 07-17-18. There is elevation of the right hemidiaphragm with scarring over the right lung base. The heart size is normal. There is evidence of old granulomatous disease. No focal areas of consolidation, pneumotho races or large effusions are seen. There is blunting of the right costophrenic angle which may be due to scarring or small effusion. POS: [facility]
== END 2018-08-18 09:43 | disposition home or self-care (01) ==
LOC: RAD 09:42
PROVIDERS: ATTEND Internal Medicine
DX: R06.00 Dyspnea, unspecified (principal); D71 Functional disorders of polymorphonuclear neutrophils; J98.4 Other disorders of lung
CPT/HCPCS: 71046

== ENCOUNTER 2018-08-29 17:31 | Emergency (ER) | payer MEDICARE, MEDICAID ==
--- NOTE | 2018-08-29 18:26 | RAD ---
SINGLE VIEW CHEST: HISTORY: Breathing funny. History of aspiration. Cough. COMPARISON: 07/17/2018 and 08/18/2018 FINDINGS: A single view of the chest shows a normal sized cardiomediastinal silhouette. Calcified granulomas p roject over both lungs. There is stable elevation of the right hemidiaphragm. There is no evidence of consolidation or pleural effusion. IMPRESSION: No evidence of acute cardiopulmonary disease. POS: [facility]
== END 2018-08-29 18:58 | disposition home or self-care (01) ==
LOC: ERS 17:31
DX: R05 Cough (principal); E11.9 Type 2 diabetes mellitus without complications; I10 Essential (primary) hypertension; E87.1 Hypo-osmolality and hyponatremia; F84.0 Autistic disorder; Z79.82 Long term (current) use of aspirin; Z79.899 Other long term (current) drug therapy
CPT/HCPCS: 71045

== ENCOUNTER 2019-01-03 15:09 | Emergency (ER) | payer MEDICAID, MEDICARE ==
--- NOTE | 2019-01-03 15:59 | RAD ---
Exam: Left foot 3 views: HISTORY: Pain following injury, bruising Nondisplaced fractures of the distal second, third, and fourth metatarsals. Sclerotic focus in the distal fourth metatarsal probably an incidental bone island. Minimal bony demineralization with some generalized degenerative change. Nondisplaced fracture off th e medial corner of the first toe proximal phalanx. IMPRESSION: Nondisplaced fractures of the distal second, third, and fourth metatarsals. Nondisplaced chip-type fracture off the medial base of the proximal phalanx of the great toe. Bony de mineralization and generalized degenerative change. Intimal soft tissue swelling of the forefoot.
--- NOTE | 2019-01-03 16:02 | RAD ---
LEFT ANKLE THREE VIEWS: 01/03/19 HISTORY: Injury. Left ankle pain. FINDINGS/IMPRESSION: No acute fracture or dislocation is identified. The ankle mortise is maintained. POS: [facility]
[2019-01-03] MEDS ORDERED: Ibuprofen 200 MG TAB ONE (16:58)
== END 2019-01-03 17:05 | disposition home or self-care (01) ==
LOC: ERS 15:09
DX: S92.325A Nondisplaced fracture of second metatarsal bone, left foot, initial encounter for closed fracture (principal); S92.335A Nondisplaced fracture of third metatarsal bone, left foot, initial encounter for closed fracture; S92.345A Nondisplaced fracture of fourth metatarsal bone, left foot, initial encounter for closed fracture; S92.415A Nondisplaced fracture of proximal phalanx of left great toe, initial encounter for closed fracture; I10 Essential (primary) hypertension; F84.0 Autistic disorder; E11.9 Type 2 diabetes mellitus without complications; Z79.899 Other long term (current) drug therapy; W22.09XA Striking against other stationary object, initial encounter
CPT/HCPCS: 28470; 28490

== ENCOUNTER 2019-02-12 10:34 | Emergency (ER) | payer MEDICAID, MEDICARE ==
--- NOTE | 2019-02-12 13:12 | CT ---
CT Brain WO Con History: Emergency exam. Altered mental status. Comparison: CT brain 2017 Findings: No acute hemorrhage or infarct. No midline shift or mass effect. Ventricular size and extra -axial CSF spaces are normal. Moderate chronic microvascular ischemic changes. Globes are intact. Paranasal sinuses and mastoids ar e clear. Impression: Chronic findings. No acute intracranial abnormality.
[2019-02-12] MEDS ORDERED: Ondansetron PF 4 MG/2 ML Vial ONE (13:13)
--- NOTE | 2019-02-12 13:24 | RAD ---
PORTABLE CHEST: COMPARISON: 08/29/2018 study. HISTORY: Weakness, lethargy. FINDINGS: Heart size is upper limits of normal. There are atherosclerotic changes of the aorta. Chronic inter stitial lung changes are seen with some pleural scarring in the right base again noted. Bones appear demineralized. IMPRESSION: Chronic lung change. Stable chest. POS: [facility]
[2019-02-12 13:33] LABS: ALT (SGPT) 12 U/L (8-55); AST (SGOT) 19 U/L (5-34); Albumin 4.6 g/dL (3.4-4.8); Alkaline Phosphatase 129 U/L (40-150); Anion Gap 14 mmol/L (10-20); BUN (Urea Nitrogen) 12 mg/dL (8.4-25.7); Bilirubin, Total 0.5 mg/dL (0.2-1.2); Calc. Creatinine Clearance 0 mL/min (70-130); Calcium 10.2 mg/dL (7.8-10.44); Carbon Dioxide 27 mmol/L (23-31); Chloride 96 mmol/L (98-107); Estimated GFR-MDRD Greater than 90; Globulin 3.8 g/dL (2.4-3.5); Glucose 219 mg/dL (80-115); Lipase 16 U/L (8-78); Potassium 3.9 mmol/L (3.5-5.1); Protein, Total 8.4 g/dL (5.8-8.1); Sodium 133 mmol/L (136-145)
[2019-02-12 14:16] LABS: #Lymphocytes 0.7 thou/uL (1.20-3.40); #Monocytes 0.3 thou/uL (0.11-0.59); #Neutrophils 7.2 thou/uL (1.40-6.50); %Basophils 0.1 % (0.0-1.0); %Eosinophils 0.3 % (0.0-10.0); %Lymphocytes 8.1 % (21.0-51.0); %Monocytes 3.2 % (0.0-10.0); %Neutrophils 88.2 % (42.0-75.0); Mean Corpuscular HGB CONC 33.5 g/dL (32.0-36.0); Mean Corpuscular Hemoglobin 29.6 pg (27.0-31.0); Mean Corpuscular Volume 88.4 fL (78.0-98.0); Mean Platelet Volume 7.4 fL (7.4-10.4); Platelet Count 218 thou/uL (130-400); RBC Distribution Width 13.7 % (11.5-14.5); Red Blood Cell (RBC) Count 5.07 mill/uL (4.70-6.10); White Blood Cell (WBC) Count 8.2 thou/uL (4.8-10.8)
[2019-02-12 15:20] LABS: Bilirubin Negative (Negative); Blood, Urine Trace (Negative); Clarity CLOUDY (Clear); Glucose, Urine (Dipstick) 250 mg/dL (Negative); Leukocyte Negative (Negative); Nitrite Negative (Negative); Protein, Urine (Dipstick) 100 mg/dL (Neg-Trace); Specific Gravity, Urine 1.012 (1.002-1.036); Urobilinogen 0.2 mg/dL (0.2-1.0); pH, Urine 7.5 (5.0-9.0)
[2019-02-12 15:21] LABS: Bacteria/HPF None Seen HPF (None Seen); Hyaline Casts/LPF 0-3 HYALINE CAST LPF (0-3 Hyaline); Squamous Epithelial None Seen HPF (0-3); WBC/HPF None Seen HPF (0-3)
== END 2019-02-12 16:10 | disposition home or self-care (01) ==
LOC: ERS 10:34
DX: R53.1 Weakness (principal); I10 Essential (primary) hypertension; F84.0 Autistic disorder; Z79.82 Long term (current) use of aspirin; Z79.899 Other long term (current) drug therapy
CPT/HCPCS: 36416; 70450; 71045; 80053; 81003; 81015; 83605; 83690; 84484; 85025; 87040; 93005; 94760; 96374; J2405

== ENCOUNTER 2019-04-09 09:37 | Outpatient (CLI) | payer MEDICARE, MEDICAID ==
--- NOTE | 2019-04-09 10:37 | RAD ---
Exam: KUB: HISTORY: Calculus of kidney COMPARISON: 04/03/2018 Right renal oval calcification.. No evidence for ureteral calculus. IMPRESSION: Stable circumscribed oval calcification the right kidney. No ureteral calculus. Moderate fecal materi al in the colon and dilated rectum.
== END 2019-04-09 09:38 | disposition home or self-care (01) ==
LOC: BICRAD 09:37
PROVIDERS: ATTEND Urology
DX: N20.0 Calculus of kidney (principal); K59.00 Constipation, unspecified; N28.89 Other specified disorders of kidney and ureter; R82.90 Unspecified abnormal findings in urine; E87.1 Hypo-osmolality and hyponatremia; R35.0 Frequency of micturition; R31.29 Other microscopic hematuria
CPT/HCPCS: 36415; 74018; 80048; 81001; 87086

== ENCOUNTER 2019-05-13 13:15 | Emergency (ER) | payer MEDICARE, MEDICAID ==
--- NOTE | 2019-05-13 14:13 | RAD ---
EXAM: Portable chest PROVIDED CLINICAL HISTORY: Cough COMPARISON: 02/12/2019 FINDINGS: Cardiac and mediastinal silhouette is within normal limits. No focal consolidation, pleural fluid or pneumothorax evident. IMPRESSION: No evidence for an acute cardiopulmonary process.
== END 2019-05-13 14:30 | disposition home or self-care (01) ==
LOC: ERS 13:15
DX: R05 Cough (principal); R09.82 Postnasal drip; F84.0 Autistic disorder; I10 Essential (primary) hypertension; Z79.899 Other long term (current) drug therapy
CPT/HCPCS: 71045

== ENCOUNTER 2019-08-24 07:46 | Emergency (ER) | payer MEDICARE, MEDICAID | END 2019-08-24 09:05 | disposition home or self-care (01) | LOC: ERS 07:46 | DX: H11.001 Unspecified pterygium of right eye (principal); I10 Essential (primary) hypertension; F84.0 Autistic disorder; E11.9 Type 2 diabetes mellitus without complications; E87.1 Hypo-osmolality and hyponatremia; Z87.442 Personal history of urinary calculi; Z79.899 Other long term (current) drug therapy | CPT/HCPCS: 99283 ==

== ENCOUNTER 2019-09-13 18:20 | Emergency (ER) | payer MEDICARE, MEDICAID ==
--- NOTE | 2019-09-13 21:14 | RAD ---
TWO VIEWS RIGHT SHOULDER: 09/13/19 HISTORY: Right shoulder pain. COMPARISON: None. FINDINGS: Provided images are limited for evaluation of a dislocation. However, there is evidence of a fracture involving the neck of the right humerus with separation of the fracture fragments. The right scapula is elevated , and the elevation of the right scapula was also present on chest x-ray on 05/13/19. IMPRESSION: 1. Mildly fracture involving the right humeral neck. 2. Persistent elevation right scapula. 3. Limited evaluation for dislocation given provided images. If better imaging is able to be per formed to evaluate for glenohumeral relationship, this would be helpful to evaluate for dislocation. POS: [facility]
== END 2019-09-13 20:12 | disposition home or self-care (01) ==
LOC: ERS 18:20
DX: S42.211A Unspecified displaced fracture of surgical neck of right humerus, initial encounter for closed fracture (principal); W18.30XA Fall on same level, unspecified, initial encounter

== ENCOUNTER → 2019-09-17 | Day surgery (SDC) | payer MEDICARE, MEDICAID ==
[~2019-09-17] MED LIST: Lidocaine 1% PF 5 ML VIAL ONE; PROPOFOL 200 MG/20 ML VIAL ONE
--- NOTE | 2019-09-17 15:40 | RAD ---
RADIOGRAPH RIGHT SHOULDER 2 VIEWS: Date: 09/17/2019 Time: 1246 hours HISTORY: 69-year-old male for closed reduction of fracture and dislocation of right shoulder. COMPARISON: 09/13/2019. FINDINGS: Intrinsically low image resolution because images obtained with C-arm. Again noted is the minimally displaced and moderately angulated, transversely oriented fracture of th e humeral surgical neck. The humeral head is no longer inferiorly dislocated relative to the glenoid. However, the transverse dimension of the glenohumeral joint space is widened. IMPRESSION: 1. Interval reduction of the glenohumeral joint dislocation. 2. Angulated and mildly displaced humeral neck fracture, acute or subacute. POS: [facility]
--- NOTE | 2019-09-17 17:47 | OP ---
DATE OF PROCEDURE: 09/17/2019 PROCEDURE PERFORMED: Closed reduction of right shoulder dislocation. PREOPERATIVE DIAGNOSIS: Right shoulder dislocation. POSTOPERATIVE DIAGNOSIS: Right shoulder dislocation. IMPLANTS: None. ESTIMATED BLOOD LOSS: None. INDICATIONS FOR PROCEDURE: Mr. Lares is a 69-year-old male, who fell approximately 10 days ago. He fractured his right proximal humerus. He also sustained a dislocation of the right shoulder. He was indicated for closed reduction of the shoulder under anesthesia to improve the alignment of the proximal humerus fracture and reduce the shoulder. Risks have been reviewed in detail. He elected to proceed with the operation. DESCRIPTION OF PROCEDURE: Mr. Lares was identified in the preoperative holding area. His correct extremity was marked. He was carried to the operating room. He was positioned supine. General anesthesia was induced. A multidisciplinary time-out was performed. The right upper extremity was evaluated with intraoperative x-ray. There was inferior dislocation of the proximal humerus in relation to the glenoid. There was also a proximal humerus fracture. We performed countertraction and traction on the arm. We were able to reduce the proximal humerus back into its anatomic position and reduce the shoulder dislocation. We ranged the shoulder, and it appeared very stable. We took x-ray images confirming reduction. There was no complication. The patient was taken to the recovery room at this point in good condition without complications. Job ID: [id number]
== END ==
LOC: EEVIPCON 10:10 → SDC 10:10
PROVIDERS: ATTEND Orthopaedic Surgery
PROC: 0RSJXZZ Reposition Right Shoulder Joint, External Approach (ICD-10-PCS; principal; 2019-09-17)
DX: S43.084A Other dislocation of right shoulder joint, initial encounter (principal); S42.211A Unspecified displaced fracture of surgical neck of right humerus, initial encounter for closed fracture; F84.0 Autistic disorder; F79 Unspecified intellectual disabilities; I10 Essential (primary) hypertension; K21.9 Gastro-esophageal reflux disease without esophagitis; Z85.038 Personal history of other malignant neoplasm of large intestine; Z88.0 Allergy status to penicillin; Z90.49 Acquired absence of other specified parts of digestive tract; W19.XXXA Unspecified fall, initial encounter
CPT/HCPCS: 76000; J2001; J2704